=== PATIENT | female | born 1950 | race Caucasian/White ===

== ENCOUNTER 2018-03-30 06:33 | Inpatient (IN) | payer OTHER ==
[~2018-03-30] VITALS: Ht 162.6 cm; Wt 77.1 kg
[2018-03-30] VITALS (8 sets, daily range): BP systolic 134–155; BP diastolic 48–76
[2018-03-30] MEDS ORDERED: ONDANSETRON PF 4 MG/2 ML VIAL. IV ONE (07:15)
[2018-03-30] MEDS ORDERED: IV NORMAL SALINE 1000ML BAG 1,000 ML IV ONE (07:15)
[2018-03-30] MEDS ORDERED: FAMOTIDINE 20 MG/2 ML VIAL IVP ONE (07:15)
[2018-03-30] MEDS ORDERED: MORPHINE SULFATE 4 MG/ML VIAL. IV ONE (07:15)
--- NOTE | 2018-03-30 07:17 | PHYS DOC ---
Adult General Chief Complaint Chief Complaint: NAUSEA/VOMITING/DIARRHA HPI HPI Patient is a 67 year old female who presents with epigastric pain and nausea. Patient had onset of symptoms around 9 PM last night. She had upper abdominal and epigastric pain along with nausea and vomiting. She endorses 6 episodes of emesis overnight described to be nonbloody. Most recent episode was just prior to arrival. No chest pain. No shortness of breath. No fever or chills. She last ate food at 5 PM yesterday when she had brisk and potatoes. No other ill family members. Her past surgical history is only positive for 2. Review of Systems Review of Systems Constitutional: Denies fever or chills Eyes: Denies change in visual acuity HENT: Denies nasal congestion Respiratory: Denies cough Cardiovascular: No additional information not addressed in HPI GI: as documented above : Denies dysuria Musculoskeletal: Denies back pain Integument: Denies rash or skin lesions Neurologic: Denies headache All other systems were reviewed and found to be within normal limits, except as documented in this note. Current Medications Current Medications Current Medications Medications (Trade) Dose Ordered Sig/Faisal Start Time Stop Time Status Last Admin Dose Admin Famotidine (Pepcid Vial) 20 mg 1X ONCE 03/30/18 07:15 03/30/18 07:27 DC 03/30/18 07:31 20 MG Morphine Sulfate (Morphine Sulfate) 4 mg 1X ONCE 03/30/18 07:15 03/30/18 07:27 DC 03/30/18 07:32 4 MG Ondansetron HCl (Zofran) 4 mg 1X ONCE 03/30/18 07:15 03/30/18 07:27 DC 03/30/18 07:31 4 MG Sodium Chloride 1,000 ml @ 1,000 mls/hr 1X ONCE 03/30/18 07:15 03/30/18 08:14 DC 03/30/18 07:32 1,000 MLS/HR Allergies Allergies Allergies Coded Allergies Type Severity Reaction Last Updated Verified No Known Drug Allergies 03/30/18 No Physical Exam Physical Exam Constitutional: Well developed, well nourished, no acute distress, non-toxic appearance HENT: Normocephalic, atraumatic, bilateral external ears normal, oropharynx moist Eyes: PERRLA, EOMI, conjunctiva normal Neck: Normal range of motion Cardiovascular:Heart rate regular, no murmur Lungs & Thorax: Bilateral breath sounds clear to auscultation Abdomen: Bowel sounds normal, soft, subjective TTP over epigastrium but no guarding or significant pain, otherwise normal exam of abdomen Skin: Warm, dry, no erythema, no rash Extremities: No edema Neurologic: Alert and oriented X 3 Psychologic: Affect normal Current Patient Data Vital Signs Vital Signs Date Time Temp Pulse Resp B/P (MAP) Pulse Ox O2 Delivery O2 Flow Rate FiO2 03/30/18 08:30 66 140/66 (90) 98 03/30/18 07:32 16 03/30/18 07:00 97.6 Room Air 97.6 Lab Values Laboratory Tests Test 03/30/18 07:20 03/30/18 08:15 White Blood Count 10.2 x10^3/uL (4.0-11.0) Red Blood Count 5.57 x10^6/uL (3.50-5.40) H Hemoglobin 16.4 g/dL (12.0-15.5) H Hematocrit 47.9 % (36.0-47.0) H Mean Corpuscular Volume 86 fL (79-100) Mean Corpuscular Hemoglobin 29 pg (25-35) Mean Corpuscular Hemoglobin Concent 34 g/dL (31-37) Red Cell Distribution Width 13.5 % (11.5-14.5) Platelet Count 255 x10^3/uL (140-400) Neutrophils (%) (Auto) 75 % (31-73) H Lymphocytes (%) (Auto) 18 % (24-48) L Monocytes (%) (Auto) 6 % (0-9) Eosinophils (%) (Auto) 0 % (0-3) Basophils (%) (Auto) 1 % (0-3) Neutrophils # (Auto) 7.6 x10^3uL (1.8-7.7) Lymphocytes # (Auto) 1.9 x10^3/uL (1.0-4.8) Monocytes # (Auto) 0.6 x10^3/uL (0.0-1.1) Eosinophils # (Auto) 0.0 x10^3/uL (0.0-0.7) Basophils # (Auto) 0.0 x10^3/uL (0.0-0.2) Sodium Level 142 mmol/L (136-145) Potassium Level 4.5 mmol/L (3.5-5.1) Chloride Level 103 mmol/L (98-107) Carbon Dioxide Level 29 mmol/L (21-32) Anion Gap 10 (6-14) Blood Urea Nitrogen 10 mg/dL (7-20) Creatinine 0.8 mg/dL (0.6-1.0) Estimated GFR (Cockcroft-Gault) 71.5 Glucose Level 187 mg/dL (70-99) H Calcium Level 9.3 mg/dL (8.5-10.1) Total Bilirubin 1.3 mg/dL (0.2-1.0) H Direct Bilirubin 0.9 mg/dL (0.0-0.2) H Aspartate Amino Transferase (AST) 545 U/L (15-37) H Alanine Aminotransferase (ALT) 411 U/L (14-59) H Alkaline Phosphatase 124 U/L (46-116) H Troponin I Quantitative < 0.017 ng/mL (0.000-0.055) Total Protein 7.2 g/dL (6.4-8.2) Albumin 3.6 g/dL (3.4-5.0) Lipase 109 U/L (73-393) Laboratory Tests 03/30/18 07:20 Laboratory Tests 03/30/18 08:15 EKG EKG No STEMI Interpretation Time: 07:25 Radiology/Procedures Radiology/Procedures RUQ US: FINDINGS: The pancreas is homogeneous without focal enlargement. There is diffuse attenuation of sound throughout the liver which limits sonographic evaluation of the liver for focal hepatic lesions. This may be seen with fatty infiltration of the liver. The liver measures 17.7 cm in length. The extra hepatic bile duct measures 7 mm in caliber which is at the upper limits of normal. The gallbladder is filled with gallstones. The gallbladder wall measures 4.8 mm in thickness which is abnormal. The length of the right kidney is 10.8 cm. No hydronephrosis or renal mass or perinephric fluid collection is seen on this side. IMPRESSION: Cholelithiasis. Gallbladder wall thickening which may be seen with cholecystitis. The extra hepatic bile duct measures 7 mm in caliber which is at the upper limits of normal. Significant fatty infiltration of the liver. Course & Med Decision Making Course & Med Decision Making Pertinent Labs and Imaging studies reviewed. (See chart for details) 07:10: Patient is seen and examined. Upper abd pain associated with some n/v after eating brisket last night. Will check abd pain labs and troponin, EKG. Exam of abdomen is benign except for mild TTP over epigastrium. Will check US of GB. 08:50: Patient has remained symptom-free since her initial dose of morphine and Zofran. Her abdominal exam remains the same. She does subjectively feel improved. She has no additional nausea. Her pain is improved. Her right upper quadrant ultrasound is revealing for mild thickening of the anterior gallbladder wall but no pericholecystic fluid. Consideration is given for discharge home but the patient's hepatic panel reveals elevation of LFTs. The patient does not say she has had these symptoms more on a chronic basis but that they normally resolve within 2 hours. The episode last night lasted all night which is what prompted her ER visit. No fever. No white count. Plan will be to admit the patient and request GI and surgery consultation. Patient is agreeable to this time. Dragon Disclaimer Dragon Disclaimer This electronic medical record was generated, in whole or in part, using a voice recognition dictation system. Departure Departure Referrals: KOLBY LENNON APRN (PCP) TARA MARTIN DO Mar 30, 2018 07:17
[2018-03-30 07:31] LABS: BASO % 1 % (0-3); EOS % 0 % (0-3); HEMATOCRIT 47.9 % (36.0-47.0); HEMOGLOBIN 16.4 g/dL (12.0-15.5); LYMPH # 1.9 x10^3/uL (1.0-4.8); LYMPH % 18 % (24-48); MEAN CORPUSCULAR HEMOGLOBIN 29 pg (25-35); MEAN CORPUSCULAR HGB CONC 34 g/dL (31-37); MEAN CORPUSCULAR VOLUME 86 fL (79-100); MONO # 0.6 x10^3/uL (0.0-1.1); MONO % 6 % (0-9); NEUT # 7.6 x10^3uL (1.8-7.7); NEUT % 75 % (31-73); PLATELET COUNT 255 x10^3/uL (140-400); RED BLOOD COUNT 5.57 x10^6/uL (3.50-5.40); RED CELL DISTRIBUTION WIDTH 13.5 % (11.5-14.5); WHITE BLOOD COUNT 10.2 x10^3/uL (4.0-11.0)
--- NOTE | 2018-03-30 07:43 | EKG ---
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
--- NOTE | 2018-03-30 08:25 | RAD ---
Limited abdomen ultrasound study of the right upper quadrant Clinical indications: Nausea and vomiting and epigastric pain. FINDINGS: The pancreas is homogeneous without focal enlargement. There is diffuse attenuation of sound throughout the liver which limits sonographic evaluation of the liver for focal hepatic lesions. This may be seen with fatty infiltration of the liver. The liver measures 17.7 cm in length. The extra hepatic bile duct measures 7 mm in caliber which is at the upper limits of normal. The gallbladder is filled with gallstones. The gallbladder wall measures 4.8 mm in thickness which is abnormal. The length of the right kidney is 10.8 cm. No hydronephrosis or renal mass or perinephric fluid collection is seen on this side. IMPRESSION: Cholelithiasis. Gallbladder wall thickening which may be seen with cholecystitis. The extra hepatic bile duct measures 7 mm in caliber which is at the upper limits of normal. Significant fatty infiltration of the liver. Electronically signed by: Erasto Murillo MD (03/30/2018 8:22 AM) [id number]
[2018-03-30 08:32] LABS: CALCIUM 9.3 mg/dL (8.5-10.1); CREATININE 0.8 mg/dL (0.6-1.0); GFR 71.5; POTASSIUM 4.5 mmol/L (3.5-5.1)
[2018-03-30 09:24] LABS: ALBUMIN 3.6 g/dL (3.4-5.0); DIRECT BILIRUBIN 0.9 mg/dL (0.0-0.2); TOTAL BILIRUBIN 1.3 mg/dL (0.2-1.0); TOTAL PROTEIN 7.2 g/dL (6.4-8.2)
[2018-03-30] MEDS ORDERED: MORPHINE SULFATE 4 MG/ML VIAL. IV PRN (09:45)
[2018-03-30] MEDS ORDERED: ONDANSETRON PF 4 MG/2 ML VIAL. IV PRN ×2 (09:45→11:30)
[2018-03-30 10:43] LABS: BILIRUBIN,URINE SMALL (NEG); CLARITY,URINE CLEAR; COLOR,URINE AMBER; NITRITE,URINE NEGATIVE (NEG); PH,URINE 7.5; PROTEIN,URINE 100 mg/dL (NEG-TRACE)
[2018-03-30 10:55] LABS: BACTERIA,URINE MODERATE /HPF (0-FEW); RBC,URINE 0 /HPF (0-2); SQUAMOUS EPITHELIAL CELL,UR MOD /LPF
[2018-03-30] MEDS ORDERED: IV RINGERS,LACTATED 1000ML 1,000 ML IV SCH (11:22)
[2018-03-30] MEDS ORDERED: fentaNYL PF VIAL 100 MCG/2 ML VIAL IV PRN ×2 (11:30)
[2018-03-30] MEDS ORDERED: MORPHINE SULFATE 2 MG/ML VIAL. IV PRN (11:30)
[2018-03-30] MEDS ORDERED: PROCHLORPERAZINE 10 MG/2 ML VIAL. IV PRN (11:30)
[2018-03-30] MEDS ORDERED: HYDROmorphone 2 MG/ML VIAL IV PRN (11:30)
[2018-03-30] MEDS ORDERED: LIDOCAINE 1% PF 2 ML VIAL. ID PRN (11:30)
--- NOTE | 2018-03-30 11:36 | PDOC2 ---
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 Associated nausea and emesis. Intermittent symptoms over the years, however usually only last a few hours. This was the worst episode. Was told in past had gallstones Past Medical History Cardiovascular: HTN, Hyperlipidemia Past Surgical History Past Surgical History: Family History Family History: Other (noncontributory to current illness ) Social History No ALCOHOL: rare Drugs: None Lives: with Family Current Medications Current Medications Current Medications Sodium Chloride 1,000 ml @ 1,000 mls/hr 1X ONCE IV Last administered on at 07:32; Start 03/30/18 at 07:15; Stop 03/30/18 at 08:14; Status DC Famotidine (Pepcid Vial) 20 mg 1X ONCE IVP Last administered on 03/30/18at 07: 31; Start 03/30/18 at 07:15; Stop 03/30/18 at 07:27; Status DC Morphine Sulfate (Morphine Sulfate) 4 mg 1X ONCE IV Last administered on at 07:32; Start 03/30/18 at 07:15; Stop 03/30/18 at 07:27; Status DC Ondansetron HCl (Zofran) 4 mg 1X ONCE IV Last administered on 03/30/18at 07:31 ; Start 03/30/18 at 07:15; Stop 03/30/18 at 07:27; Status DC Ondansetron HCl (Zofran) 4 mg PRN Q8HRS PRN IV NAUSEA/VOMITING; Start 03/30/18 at 09:45; Stop 03/31/18 at 09:44 Morphine Sulfate (Morphine Sulfate) 4 mg PRN Q2HR PRN IV PAIN; Start 03/30/18 at 09:45; Stop 03/31/18 at 09:44 Ondansetron HCl (Zofran) 4 mg PRN Q6HRS PRN IV NAUSEA/VOMITING; Start 03/30/18 at 11:30; Stop 03/30/18 at 19:00 Fentanyl Citrate (Fentanyl 2ml Vial) 25 mcg PRN Q5MIN PRN IV MILD PAIN; Start 03/30/18 at 11:30; Stop 03/31/18 at 11:29 Fentanyl Citrate (Fentanyl 2ml Vial) 50 mcg PRN Q5MIN PRN IV MODERATE TO SEVERE PAIN; Start 03/30/18 at 11:30; Stop 03/31/18 at 11:29 Morphine Sulfate (Morphine Sulfate) 1 mg PRN Q10MIN PRN IV SEVERE PAIN; Start 03/30/18 at 11:30; Stop 03/31/18 at 11:29 Ringer's Solution 1,000 ml @ 30 mls/hr Q24H IV ; Start 03/30/18 at 11:22; Stop 03/30/18 at 23:21 Lidocaine HCl (Xylocaine-Mpf 1% 2ml Vial) 2 ml 1X PRN PRN ID IV START; Start 03/30/18 at 11:30; Stop 03/31/18 at 11:29 Hydromorphone HCl (Dilaudid) 0.5 mg PRN Q10MIN PRN IV SEV PAIN, Second choice; Start 03/30/18 at 11:30; Stop 03/31/18 at 11:29 Prochlorperazine Edisylate (Compazine) 5 mg PACU PRN PRN IV NAUSEA, MRX1; Start 03/30/18 at 11:30; Stop 03/31/18 at 11:29 Allergies Allergies: Coded Allergies: No Known Drug Allergies (Unverified , 03/30/18) ROS General: No: Chills, Other (fevers) PSYCHOLOGICAL ROS: No: Anxiety, Depression Eyes: No Blurry vision, No Double vision HEENT: No: Heacaches, Sore Throat Hematological and Lymphatic: No: Bleeding Problems, Blood Clots Respiratory: No: Cough, Shortness of breath Cardiovascular: No Chest Pain, No Palpitations Gastrointestinal: Yes Other (seehpi) Genitourinary: No Dysuria, No Retention Musculoskeletal: No Joint Pain, No Muscle Pain Neurological: No Confusion, No Impaired Coord/balance Skin: No Pruritus, No Rash Physical Exam General: Alert, Oriented X3, Cooperative, No acute distress HEENT: PERRLA, Mucous membr. moist/pink Lungs: Clear to auscultation, Normal air movement Heart: Regular rate, Normal S1, Normal S2, No murmurs Abdomen: Soft, Other (ND, currently NTTP) Extremities: No clubbing, No cyanosis Skin: No rashes, No breakdown Neuro: Normal gait, Normal speech Psych/Mental Status: Mental status NL, Mood NL MUSCULOSKELETAL: No deformity, No swelling Vitals VITALS Vital Signs Date Time Temp Pulse Resp B/P (MAP) Pulse Ox O2 Delivery O2 Flow Rate FiO2 03/30/18 10:00 66 16 141/67 (91) 97 Room Air 03/30/18 07:00 97.6 97.6 Labs Labs Laboratory Tests Test 03/30/18 07:00 03/30/18 07:20 03/30/18 08:15 Urine Collection Type Unknown Urine Color Jessica Urine Clarity Clear Urine pH 7.5 Urine Specific Levasy 1.025 Urine Protein 100 mg/dL (NEG-TRACE) Urine Glucose (UA) Negative mg/dL (NEG) Urine Ketones (Stick) Negative mg/dL (NEG) Urine Blood Negative (NEG) Urine Nitrite Negative (NEG) Urine Bilirubin Small (NEG) Urine Urobilinogen Dipstick 4.0 mg/dL (0.2 mg/dL) Urine Leukocyte Esterase Trace (NEG) Urine RBC 0 /HPF (0-2) Urine WBC 1-4 /HPF (0-4) Urine Squamous Epithelial Cells Mod /LPF Urine Bacteria Moderate /HPF (0-FEW) Urine Mucus Mod /LPF White Blood Count 10.2 x10^3/uL (4.0-11.0) Red Blood Count 5.57 x10^6/uL (3.50-5.40) Hemoglobin 16.4 g/dL (12.0-15.5) Hematocrit 47.9 % (36.0-47.0) Mean Corpuscular Volume 86 fL (79-100) Mean Corpuscular Hemoglobin 29 pg (25-35) Mean Corpuscular Hemoglobin Concent 34 g/dL (31-37) Red Cell Distribution Width 13.5 % (11.5-14.5) Platelet Count 255 x10^3/uL (140-400) Neutrophils (%) (Auto) 75 % (31-73) Lymphocytes (%) (Auto) 18 % (24-48) Monocytes (%) (Auto) 6 % (0-9) Eosinophils (%) (Auto) 0 % (0-3) Basophils (%) (Auto) 1 % (0-3) Neutrophils # (Auto) 7.6 x10^3uL (1.8-7.7) Lymphocytes # (Auto) 1.9 x10^3/uL (1.0-4.8) Monocytes # (Auto) 0.6 x10^3/uL (0.0-1.1) Eosinophils # (Auto) 0.0 x10^3/uL (0.0-0.7) Basophils # (Auto) 0.0 x10^3/uL (0.0-0.2) Sodium Level 142 mmol/L (136-145) Potassium Level 4.5 mmol/L (3.5-5.1) Chloride Level 103 mmol/L (98-107) Carbon Dioxide Level 29 mmol/L (21-32) Anion Gap 10 (6-14) Blood Urea Nitrogen 10 mg/dL (7-20) Creatinine 0.8 mg/dL (0.6-1.0) Estimated GFR (Cockcroft-Gault) 71.5 Glucose Level 187 mg/dL (70-99) Calcium Level 9.3 mg/dL (8.5-10.1) Total Bilirubin 1.3 mg/dL (0.2-1.0) Direct Bilirubin 0.9 mg/dL (0.0-0.2) Aspartate Amino Transf (AST/SGOT) 545 U/L (15-37) Alanine Aminotransferase (ALT/SGPT) 411 U/L (14-59) Alkaline Phosphatase 124 U/L (46-116) Troponin I Quantitative < 0.017 ng/mL (0.000-0.055) Total Protein 7.2 g/dL (6.4-8.2) Albumin 3.6 g/dL (3.4-5.0) Lipase 109 U/L (73-393) Laboratory Tests Test 03/30/18 07:00 03/30/18 07:20 03/30/18 08:15 Urine Collection Type Unknown Urine Color Jessica Urine Clarity Clear Urine pH 7.5 Urine Specific Lev[place] 1.025 Urine Protein 100 mg/dL (NEG-TRACE) Urine Glucose (UA) Negative mg/dL (NEG) Urine Ketones (Stick) Negative mg/dL (NEG) Urine Blood Negative (NEG) Urine Nitrite Negative (NEG) Urine Bilirubin Small (NEG) Urine Urobilinogen Dipstick 4.0 mg/dL (0.2 mg/dL) Urine Leukocyte Esterase Trace (NEG) Urine RBC 0 /HPF (0-2) Urine WBC 1-4 /HPF (0-4) Urine Squamous Epithelial Cells Mod /LPF Urine Bacteria Moderate /HPF (0-FEW) Urine Mucus Mod /LPF White Blood Count 10.2 x10^3/uL (4.0-11.0) Red Blood Count 5.57 x10^6/uL (3.50-5.40) Hemoglobin 16.4 g/dL (12.0-15.5) Hematocrit 47.9 % (36.0-47.0) Mean Corpuscular Volume 86 fL (79-100) Mean Corpuscular Hemoglobin 29 pg (25-35) Mean Corpuscular Hemoglobin Concent 34 g/dL (31-37) Red Cell Distribution Width 13.5 % (11.5-14.5) Platelet Count 255 x10^3/uL (140-400) Neutrophils (%) (Auto) 75 % (31-73) Lymphocytes (%) (Auto) 18 % (24-48) Monocytes (%) (Auto) 6 % (0-9) Eosinophils (%) (Auto) 0 % (0-3) Basophils (%) (Auto) 1 % (0-3) Neutrophils # (Auto) 7.6 x10^3uL (1.8-7.7) Lymphocytes # (Auto) 1.9 x10^3/uL (1.0-4.8) Monocytes # (Auto) 0.6 x10^3/uL (0.0-1.1) Eosinophils # (Auto) 0.0 x10^3/uL (0.0-0.7) Basophils # (Auto) 0.0 x10^3/uL (0.0-0.2) Sodium Level 142 mmol/L (136-145) Potassium Level 4.5 mmol/L (3.5-5.1) Chloride Level 103 mmol/L (98-107) Carbon Dioxide Level 29 mmol/L (21-32) Anion Gap 10 (6-14) Blood Urea Nitrogen 10 mg/dL (7-20) Creatinine 0.8 mg/dL (0.6-1.0) Estimated GFR (Cockcroft-Gault) 71.5 Glucose Level 187 mg/dL (70-99) Calcium Level 9.3 mg/dL (8.5-10.1) Total Bilirubin 1.3 mg/dL (0.2-1.0) Direct Bilirubin 0.9 mg/dL (0.0-0.2) Aspartate Amino Transf (AST/SGOT) 545 U/L (15-37) Alanine Aminotransferase (ALT/SGPT) 411 U/L (14-59) Alkaline Phosphatase 124 U/L (46-116) Troponin I Quantitative < 0.017 ng/mL (0.000-0.055) Total Protein 7.2 g/dL (6.4-8.2) Albumin 3.6 g/dL (3.4-5.0) Lipase 109 U/L (73-393) Assessment/Plan Assessment/Plan cholecystitis plan for lap steven today RU DIAZ MD 03/30/18 1322: CONSULT Assessment/Plan Assessment/Plan Agree with above; pt seen and examined by myself; 67 year old female with abdominal pain starting last night, pain located in upper mid abdomen, nonradiating. She reports associated nausea and vomiting. She has had prior similar episodes, but never as severe or persistent. PMH/PSH/ROS/SH as above; exam: alert, oriented, no distress, no neck masses, no icterus, lungs clear, heart RR and R abdomen soft, currently nontender, no masses, ext neg for edema. Labs and sonogram reviewed; A/P) Abdominal pain, suspect calculous cholecystitis, plan for lap steven; the details and risks of surgery were discussed with the patient. She understands and would like to proceed. JUAN DANIEL MCKAY APRN Mar 30, 2018 11:36 RU DIAZ MD Mar 30, 2018 13:22
[2018-03-30] MEDS ORDERED: ceFAZolin 2GM PREMIX 2 GM/50 ML BAG IV ONE (12:00)
--- NOTE | 2018-03-30 12:15 | PDOC2 ---
GI CONSULT Reason For Consult: N/v, cholelithiasis, transaminitis HPI: HPI: 67 y/o female evaluated in ER for epigastric pain and vomiting. Apparently similar symptoms over the years and known gallstones. Denies chronic GI issues. No previous EGD or colonoscopy, though scheduled to have colonoscopy this week at . Labs: WBC 16.4, bili 1.3, AST 545, ALT 411, Alk Phos 124. US: cholelithiasis, GB wall thickening, extra hepatic duct 7mm, fatty liver. IOC: no free flow of contrast material into the duodenum consistent with a distal common bile duct obstruction, note slight meniscus of the distal common bile duct. PMH: PMH: HTN, HLD, Social History: Smoke: No ALCOHOL: rare Drugs: None ROS: GEN: Denies fevers, chills, sweats HEENT: Denies blurred vision, sore throat CV: Denies chest pain RESP: Denies shortness of air, cough GI: Per HPI : Denies hematuria, dysuria ENDO: Denies weight changes NEURO: Denies confusion, dizziness MSK: Denies weakness, joint pain/swelling SKIN: Denies jaundice, pruritus Vitals: Vitals: Vital Signs Date Time Temp Pulse Resp B/P (MAP) Pulse Ox O2 Delivery O2 Flow Rate FiO2 03/30/18 12:01 97.4 66 15 156/77 95 Room Air 97.4 Labs: Labs: Laboratory Tests Test 03/30/18 07:00 03/30/18 07:20 03/30/18 08:15 Urine Collection Type Unknown Urine Color Jessica Urine Clarity Clear Urine pH 7.5 Urine Specific [facility] 1.025 Urine Protein 100 mg/dL (NEG-TRACE) Urine Glucose (UA) Negative mg/dL (NEG) Urine Ketones (Stick) Negative mg/dL (NEG) Urine Blood Negative (NEG) Urine Nitrite Negative (NEG) Urine Bilirubin Small (NEG) Urine Urobilinogen Dipstick 4.0 mg/dL (0.2 mg/dL) Urine Leukocyte Esterase Trace (NEG) Urine RBC 0 /HPF (0-2) Urine WBC 1-4 /HPF (0-4) Urine Squamous Epithelial Cells Mod /LPF Urine Bacteria Moderate /HPF (0-FEW) Urine Mucus Mod /LPF White Blood Count 10.2 x10^3/uL (4.0-11.0) Red Blood Count 5.57 x10^6/uL (3.50-5.40) Hemoglobin 16.4 g/dL (12.0-15.5) Hematocrit 47.9 % (36.0-47.0) Mean Corpuscular Volume 86 fL (79-100) Mean Corpuscular Hemoglobin 29 pg (25-35) Mean Corpuscular Hemoglobin Concent 34 g/dL (31-37) Red Cell Distribution Width 13.5 % (11.5-14.5) Platelet Count 255 x10^3/uL (140-400) Neutrophils (%) (Auto) 75 % (31-73) Lymphocytes (%) (Auto) 18 % (24-48) Monocytes (%) (Auto) 6 % (0-9) Eosinophils (%) (Auto) 0 % (0-3) Basophils (%) (Auto) 1 % (0-3) Neutrophils # (Auto) 7.6 x10^3uL (1.8-7.7) Lymphocytes # (Auto) 1.9 x10^3/uL (1.0-4.8) Monocytes # (Auto) 0.6 x10^3/uL (0.0-1.1) Eosinophils # (Auto) 0.0 x10^3/uL (0.0-0.7) Basophils # (Auto) 0.0 x10^3/uL (0.0-0.2) Sodium Level 142 mmol/L (136-145) Potassium Level 4.5 mmol/L (3.5-5.1) Chloride Level 103 mmol/L (98-107) Carbon Dioxide Level 29 mmol/L (21-32) Anion Gap 10 (6-14) Blood Urea Nitrogen 10 mg/dL (7-20) Creatinine 0.8 mg/dL (0.6-1.0) Estimated GFR (Cockcroft-Gault) 71.5 Glucose Level 187 mg/dL (70-99) Calcium Level 9.3 mg/dL (8.5-10.1) Total Bilirubin 1.3 mg/dL (0.2-1.0) Direct Bilirubin 0.9 mg/dL (0.0-0.2) Aspartate Amino Transf (AST/SGOT) 545 U/L (15-37) Alanine Aminotransferase (ALT/SGPT) 411 U/L (14-59) Alkaline Phosphatase 124 U/L (46-116) Troponin I Quantitative < 0.017 ng/mL (0.000-0.055) Total Protein 7.2 g/dL (6.4-8.2) Albumin 3.6 g/dL (3.4-5.0) Lipase 109 U/L (73-393) Allergies: Coded Allergies: No Known Drug Allergies (Unverified , 03/30/18) Medications: Current Medications Medications (Trade) Dose Ordered Sig/Faisal Route PRN Reason Start Time Stop Time Status Last Admin Dose Admin Sodium Chloride 1,000 ml @ 1,000 mls/hr 1X ONCE IV 03/30/18 07:15 03/30/18 08:14 DC 03/30/18 07:32 Famotidine (Pepcid Vial) 20 mg 1X ONCE IVP 03/30/18 07:15 03/30/18 07:27 DC 03/30/18 07:31 Morphine Sulfate (Morphine Sulfate) 4 mg 1X ONCE IV 03/30/18 07:15 03/30/18 07:27 DC 03/30/18 07:32 Ondansetron HCl (Zofran) 4 mg 1X ONCE IV 03/30/18 07:15 03/30/18 07:27 DC 03/30/18 07:31 Imaging: Imaging: Abd US FINDINGS: The pancreas is homogeneous without focal enlargement. There is diffuse attenuation of sound throughout the liver which limits sonographic evaluation of the liver for focal hepatic lesions. This may be seen with fatty infiltration of the liver. The liver measures 17.7 cm in length. The extra hepatic bile duct measures 7 mm in caliber which is at the upper limits of normal. The gallbladder is filled with gallstones. The gallbladder wall measures 4.8 mm in thickness which is abnormal. The length of the right kidney is 10.8 cm. No hydronephrosis or renal mass or perinephric fluid collection is seen on this side. IMPRESSION: Cholelithiasis. Gallbladder wall thickening which may be seen with cholecystitis. The extra hepatic bile duct measures 7 mm in caliber which is at the upper limits of normal. Significant fatty infiltration of the liver. IOC IMPRESSION: Fluoroscopic spot images demonstrate opacification of dilated extra hepatic biliary tree with no free flow of contrast material into the duodenum consistent with a distal common bile duct obstruction. There is a slight meniscus of the distal common bile duct and therefore this may be secondary to a distal common bile duct stone. PE: GEN: NAD HEENT: Atraumatic, PERRLA LUNGS: CTAB HEART: RRR ABD: NABS, S/ND/NT EXTREMITY: No edema SKIN: No rashes, no jaundice NEURO/PSYCH: A & O 3 A/P: A/P: Abd pain, vomiting Cholelithiasis, GB wall thickening Abnormal IOC - possible choledocholithiasis Elevated LFTs Fatty liver -- Reviewed w/ Dr. Mary - plan for ERCP tomorrow afternoon. GIA GANN Mar 30, 2018 12:15
[2018-03-30] MEDS ORDERED: PROPOFOL 20 ML IV ONE (12:50)
[2018-03-30] MEDS ORDERED: DEXAMETHASONE SOD PHOS 20 MG/5 ML VIAL. ONE (12:50)
[2018-03-30] MEDS ORDERED: ONDANSETRON PF 4 MG/2 ML VIAL. ONE (12:50)
[2018-03-30] MEDS ORDERED: FAMOTIDINE 20 MG/2 ML VIAL ONE (12:50)
[2018-03-30] MEDS ORDERED: LIDOCAINE 2% PF Vial for OR 5 ML VIAL. ONE (12:50)
[2018-03-30] MEDS ORDERED: ROCURONIUM 50 MG/5 ML VIAL. ONE (13:07)
[2018-03-30] MEDS ORDERED: MIDAZOLAM HCL/PF 2 MG/2 ML VIAL. ONE (13:07)
[2018-03-30] MEDS ORDERED: fentaNYL PF VIAL 100 MCG/2 ML VIAL ONE ×2 (13:07→15:17)
[2018-03-30] MEDS ORDERED: BUPIVACAINE-EPI 0.5%-1:200000 50 ML VIAL. ONE (13:09)
[2018-03-30] MEDS ORDERED: IOHEXOL 300 MG/ML 100ML VIAL. ONE (13:09)
[2018-03-30] MEDS ORDERED: BUPIVAC MPF-EPI 0.5%-1:200000 30 ML VIAL. INJ ONE (14:02)
[2018-03-30] MEDS ORDERED: IOHEXOL 300 MG/ML 50 ML VIAL. INT CAT ONE (14:02)
[2018-03-30] MEDS ORDERED: ePHEDrine PF IN SALINE 50 MG/5 ML DISP.SYRIN IV ONE (14:11)
[2018-03-30] MEDS ORDERED: GLUCAGON,HUMAN RECOMBINANT 1 MG/ML VIAL. ONE (14:31)
[2018-03-30] MEDS ORDERED: GLUCAGON,HUMAN RECOMBINANT 1 MG/ML VIAL. IV ONE (14:35)
[2018-03-30] MEDS ORDERED: NEOSTIGMINE METHYLSULFATE 5 MG/5 ML SYRINGE. ONE (14:51)
[2018-03-30] MEDS ORDERED: GLYCOPYRROLATE 1 MG/5 ML VIAL. ONE (14:51)
[2018-03-30] MEDS ORDERED: DESFLURANE 61 TO 120 MINUTES IH ONE (14:58)
--- NOTE | 2018-03-30 15:06 | PDOC4 ---
Operative Note Operative Note Operative Note: Preoperative Diagnosis: Calculus cholecystitis Postoperative Diagnosis: Same, choledocholithiasis Procedure: Laparoscopic cholecystectomy with intraoperative cholangiogram Surgeons: Jeremiah Anesthesia: Gen. Estimated Blood Loss: 25 mL Specimen: Gallbladder to pathology Drains: 19 Faroese ALEENA drain Findings: Obstruction of distal common duct, likely stone Complications: None Indications: The patient is a 67-year-old female who reported to the emergency department with abdominal pain. Her evaluation showed gallstones and some abnormal liver testing. Surgical treatment was offered by means of a laparoscopic cholecystectomy with plans for cholangiogram. The risks of surgery were discussed which include bleeding, infection, bile duct injury, bile leak, pain, the potential for additional surgeries or procedures. The patient understands and would like to proceed. Description: The patient was taken to the operating room and laid supine on the operating table. General anesthesia was performed. The abdomen was prepped with ChloraPrep and draped in a standard surgical fashion. A small infraumbilical incision was made with a scalpel. The Veress needle was then inserted and a pneumoperitoneum was then created. A 5 mm trocar was then inserted and the laparoscope was introduced. In the upper midabdomen an 11 mm trocar was inserted and in the right upper quadrant two 2.3 mm mini lap graspers were inserted. The gallbladder was retracted cephalad. The cystic duct was dissected free from surrounding tissues. One clip was placed on the duct near the gallbladder junction. An opening was made in the duct and a cholangiocatheter placed within and secured with a clip. Using contrast dye and fluoroscopy an intraoperative cholangiogram was performed that suggested obstruction of the distal common duct most likely from a stone. One milligram of glucagon was administered and allowed to circulate. Revisualization of the bile duct showed continued obstruction and contrast never passed into the duodenum. The clip and catheter were then withdrawn. Three clips were placed on the cystic duct and it was divided. The cystic artery was then identified, dissected free, doubly clipped and divided as well. The gallbladder was then mobilized away from the liver with cautery. A 19 Faroese round Donald drain was left in the gallbladder fossa with an exit site in the right lateral incision. This was secured to the skin with 2-0 silk. The gallbladder was then placed in an endoscopic bag and extracted at the superior trocar site. The fascia there was closed with an 0 Vicryl suture. All blood and irrigation fluid was suctioned and hemostasis was good. The remaining ports were removed and the pneumoperitoneum was relieved. The skin incisions were injected with half percent Marcaine with epinephrine, and all were closed using 4-0 Monocryl suture. Steri-Strips and dressings were then applied. The patient tolerated the procedure well and was sent to the recovery room in stable condition. At the end of the case all counts were correct. RU DIAZ MD Mar 30, 2018 15:06
[2018-03-30] MEDS ORDERED: PROCHLORPERAZINE 10 MG/2 ML VIAL. ONE (15:17)
--- NOTE | 2018-03-30 15:22 | RAD ---
C-arm fluoroscopy with fluoroscopic spot views INDICATIONS: Cholecystectomy. Intraoperative angiogram. Total fluoroscopic time: 35 seconds. Total fluoroscopic spot images: 3. IMPRESSION: Fluoroscopic spot images demonstrate opacification of dilated extra hepatic biliary tree with no free flow of contrast material into the duodenum consistent with a distal common bile duct obstruction. There is a slight meniscus of the distal common bile duct and therefore this may be secondary to a distal common bile duct stone. Note-this report was relayed to the x-ray tech at 3:18 PM on March 30, 2018. She will convey this message to the operating room. Electronically signed by: Erasto Murillo MD (03/30/2018 3:19 PM) [id number]
--- NOTE | 2018-03-30 16:24 | PDOC1 ---
History and Physical Date of Admission Date of Admission 03/30/18 Identification/Chief Complaint Chief Complaint abd pain Source Source: Chart review, Patient History of Present Illness History of Present Illness Patient is a 67 year old female who presents with epigastric pain and nausea since last night. pt said she started to have abd pain since last night, epigastric pain, dull, severe, 8/10, with non bloody non bibilous vomiting 6 times. no fever, chills, chest pain, sob. CT showed cholelithiasis with possible cholecystitis. Her past surgical history is only positive for 2 Past Medical History Cardiovascular: HTN, Hyperlipidemia Past Surgical History Past Surgical History: Family History Family History: Other (noncontributory to current illness ) Social History Smoke: No ALCOHOL: rare Drugs: None Current Medications Current Medications Current Medications Medications (Trade) Dose Ordered Sig/Faisal Start Time Stop Time Status Last Admin Dose Admin Bupivacaine HCl/ Epinephrine Bitart (Sensorcain-Mpf Epi 0.5%-1:[id number]) 30 ml STK-MED ONCE 03/30/18 14:02 03/30/18 14:17 DC 03/30/18 14:02 6 ML Cefazolin Sodium/ Dextrose 50 ml @ 100 mls/hr 1X PREOP PRN 03/30/18 11:45 03/30/18 18:00 Desflurane (Suprane) 60 ml STK-MED ONCE 03/30/18 14:58 03/30/18 14:59 DC Dexamethasone Sodium Phosphate (Decadron) 20 mg STK-MED ONCE 03/30/18 12:50 03/30/18 12:51 DC Ephedrine Sulfate (ePHEDrine PF IN SALINE SYRINGE) 50 mg STK-MED ONCE 03/30/18 14:11 03/30/18 14:12 DC Famotidine (Pepcid Vial) 20 mg STK-MED ONCE 03/30/18 12:50 03/30/18 12:51 DC Fentanyl Citrate (Fentanyl 2ml Vial) 100 mcg STK-MED ONCE 03/30/18 15:17 03/30/18 15:18 DC Glucagon (Glucagen) 1 mg STK-MED ONCE 03/30/18 14:35 03/30/18 14:42 DC 03/30/18 14:35 1 MG Glycopyrrolate (Robinul) 1 mg STK-MED ONCE 03/30/18 14:51 03/30/18 14:52 DC Hydromorphone HCl (Dilaudid) 0.5 mg PRN Q10MIN PRN 03/30/18 11:30 03/31/18 11:29 Iohexol (Omnipaque 300 Mg/ml) 50 ml STK-MED ONCE 03/30/18 14:02 03/30/18 14:17 DC 03/30/18 14:02 5 ML Lidocaine HCl (Lidocaine Pf 2% Vial) 5 ml STK-MED ONCE 03/30/18 12:50 03/30/18 12:51 DC Lidocaine HCl (Xylocaine-Mpf 1% 2ml Vial) 2 ml 1X PRN PRN 03/30/18 11:30 03/31/18 11:29 Midazolam HCl (Versed) 2 mg STK-MED ONCE 03/30/18 13:07 03/30/18 13:08 DC Morphine Sulfate (Morphine Sulfate) 1 mg PRN Q10MIN PRN 03/30/18 11:30 03/31/18 11:29 Neostigmine Methylsulfate (Neostigmine Methylsulfate) 5 mg STK-MED ONCE 03/30/18 14:51 03/30/18 14:52 DC Ondansetron HCl (Zofran) 4 mg STK-MED ONCE 03/30/18 12:50 03/30/18 12:51 DC Prochlorperazine Edisylate (Compazine) 10 mg STK-MED ONCE 03/30/18 15:17 03/30/18 15:18 DC Propofol 20 ml @ As Directed STK-MED ONCE 03/30/18 12:50 03/30/18 12:51 DC Ringer's Solution 1,000 ml @ 30 mls/hr Q24H 03/30/18 11:22 03/30/18 23:21 Rocuronium [place] (Zemuron) 50 mg STK-MED ONCE 03/30/18 13:07 03/30/18 13:08 DC Sodium Chloride 1,000 ml @ 1,000 mls/hr 1X ONCE 03/30/18 07:15 03/30/18 08:14 DC 03/30/18 07:32 1,000 MLS/HR Allergies Allergies Allergies Coded Allergies Type Severity Reaction Last Updated Verified No Known Drug Allergies 03/30/18 No ROS Review of System CONSTITUTIONAL: No fever or chills EYES: No recent changes SKIN: No rash or itching CARDIOVASCULAR: No chest pain, syncope, palpitations, or edema RESPIRATORY: No SOB or cough GASTROINTESTINAL: No nausea, vomiting or abdominal pain NEUROLOGICAL: No headaches or weakness ENDOCRINE: No cold or heat intolerance GENITOURINARY: No urgency or frequency of urination MUSCULOSKELETAL: No back pain or joint pain LYMPHATICS: No enlarged lymph nodes PSYCHIATRIC: No anxiety or depression Physical Exam Physical Exam GEN.: No apparent distress. Alert and oriented. HEENT: Head is normocephalic, atraumatic NECK: Supple. LUNGS: Clear to auscultation. HEART: RRR, S1, S2 present. Peripheral pulses intact ABDOMEN: Soft, Positive bowel sounds. + tender. EXTREMITIES: Without any cyanosis. NEUROLOGIC: Normal speech, normal tone PSYCHIATRIC: Normal affect, normal mood. SKIN: No ulcerations Vitals Vitals Vital Signs Date Time Temp Pulse Resp B/P (MAP) Pulse Ox O2 Delivery O2 Flow Rate FiO2 03/30/18 16:10 Nasal Cannula 4 03/30/18 16:00 97.4 72 18 162/69 94 97.4 Labs Labs Laboratory Tests Test 03/30/18 07:00 03/30/18 07:20 03/30/18 08:15 03/30/18 15:37 Urine Collection Type Unknown Urine Color Jessica Urine Clarity Clear Urine pH 7.5 Urine Specific Ages [place] 1.025 Urine Protein 100 mg/dL (NEG-TRACE) Urine Glucose (UA) Negative mg/dL (NEG) Urine Ketones (Stick) Negative mg/dL (NEG) Urine Blood Negative (NEG) Urine Nitrite Negative (NEG) Urine Bilirubin Small (NEG) Urine Urobilinogen Dipstick 4.0 mg/dL (0.2 mg/dL) Urine Leukocyte Esterase Trace (NEG) Urine RBC 0 /HPF (0-2) Urine WBC 1-4 /HPF (0-4) Urine Squamous Epithelial Cells Mod /LPF Urine Bacteria Moderate /HPF (0-FEW) Urine Mucus Mod /LPF White Blood Count 10.2 x10^3/uL (4.0-11.0) Red Blood Count 5.57 x10^6/uL (3.50-5.40) Hemoglobin 16.4 g/dL (12.0-15.5) Hematocrit 47.9 % (36.0-47.0) Mean Corpuscular Volume 86 fL (79-100) Mean Corpuscular Hemoglobin 29 pg (25-35) Mean Corpuscular Hemoglobin Concent 34 g/dL (31-37) Red Cell Distribution Width 13.5 % (11.5-14.5) Platelet Count 255 x10^3/uL (140-400) Neutrophils (%) (Auto) 75 % (31-73) Lymphocytes (%) (Auto) 18 % (24-48) Monocytes (%) (Auto) 6 % (0-9) Eosinophils (%) (Auto) 0 % (0-3) Basophils (%) (Auto) 1 % (0-3) Neutrophils # (Auto) 7.6 x10^3uL (1.8-7.7) Lymphocytes # (Auto) 1.9 x10^3/uL (1.0-4.8) Monocytes # (Auto) 0.6 x10^3/uL (0.0-1.1) Eosinophils # (Auto) 0.0 x10^3/uL (0.0-0.7) Basophils # (Auto) 0.0 x10^3/uL (0.0-0.2) Sodium Level 142 mmol/L (136-145) Potassium Level 4.5 mmol/L (3.5-5.1) Chloride Level 103 mmol/L (98-107) Carbon Dioxide Level 29 mmol/L (21-32) Anion Gap 10 (6-14) Blood Urea Nitrogen 10 mg/dL (7-20) Creatinine 0.8 mg/dL (0.6-1.0) Estimated GFR (Cockcroft-Gault) 71.5 Glucose Level 187 mg/dL (70-99) Calcium Level 9.3 mg/dL (8.5-10.1) Total Bilirubin 1.3 mg/dL (0.2-1.0) Direct Bilirubin 0.9 mg/dL (0.0-0.2) Aspartate Amino Transf (AST/SGOT) 545 U/L (15-37) Alanine Aminotransferase (ALT/SGPT) 411 U/L (14-59) Alkaline Phosphatase 124 U/L (46-116) Troponin I Quantitative < 0.017 ng/mL (0.000-0.055) Total Protein 7.2 g/dL (6.4-8.2) Albumin 3.6 g/dL (3.4-5.0) Lipase 109 U/L (73-393) Glucose (Fingerstick) 170 mg/dL (70-99) Laboratory Tests Test 03/30/18 07:00 03/30/18 07:20 03/30/18 08:15 03/30/18 15:37 Urine Collection Type Unknown Urine Color Jessica Urine Clarity Clear Urine pH 7.5 Urine Specific Ages [place] 1.025 Urine Protein 100 mg/dL (NEG-TRACE) Urine Glucose (UA) Negative mg/dL (NEG) Urine Ketones (Stick) Negative mg/dL (NEG) Urine Blood Negative (NEG) Urine Nitrite Negative (NEG) Urine Bilirubin Small (NEG) Urine Urobilinogen Dipstick 4.0 mg/dL (0.2 mg/dL) Urine Leukocyte Esterase Trace (NEG) Urine RBC 0 /HPF (0-2) Urine WBC 1-4 /HPF (0-4) Urine Squamous Epithelial Cells Mod /LPF Urine Bacteria Moderate /HPF (0-FEW) Urine Mucus Mod /LPF White Blood Count 10.2 x10^3/uL (4.0-11.0) Red Blood Count 5.57 x10^6/uL (3.50-5.40) Hemoglobin 16.4 g/dL (12.0-15.5) Hematocrit 47.9 % (36.0-47.0) Mean Corpuscular Volume 86 fL (79-100) Mean Corpuscular Hemoglobin 29 pg (25-35) Mean Corpuscular Hemoglobin Concent 34 g/dL (31-37) Red Cell Distribution Width 13.5 % (11.5-14.5) Platelet Count 255 x10^3/uL (140-400) Neutrophils (%) (Auto) 75 % (31-73) Lymphocytes (%) (Auto) 18 % (24-48) Monocytes (%) (Auto) 6 % (0-9) Eosinophils (%) (Auto) 0 % (0-3) Basophils (%) (Auto) 1 % (0-3) Neutrophils # (Auto) 7.6 x10^3uL (1.8-7.7) Lymphocytes # (Auto) 1.9 x10^3/uL (1.0-4.8) Monocytes # (Auto) 0.6 x10^3/uL (0.0-1.1) Eosinophils # (Auto) 0.0 x10^3/uL (0.0-0.7) Basophils # (Auto) 0.0 x10^3/uL (0.0-0.2) Sodium Level 142 mmol/L (136-145) Potassium Level 4.5 mmol/L (3.5-5.1) Chloride Level 103 mmol/L (98-107) Carbon Dioxide Level 29 mmol/L (21-32) Anion Gap 10 (6-14) Blood Urea Nitrogen 10 mg/dL (7-20) Creatinine 0.8 mg/dL (0.6-1.0) Estimated GFR (Cockcroft-Gault) 71.5 Glucose Level 187 mg/dL (70-99) Calcium Level 9.3 mg/dL (8.5-10.1) Total Bilirubin 1.3 mg/dL (0.2-1.0) Direct Bilirubin 0.9 mg/dL (0.0-0.2) Aspartate Amino Transf (AST/SGOT) 545 U/L (15-37) Alanine Aminotransferase (ALT/SGPT) 411 U/L (14-59) Alkaline Phosphatase 124 U/L (46-116) Troponin I Quantitative < 0.017 ng/mL (0.000-0.055) Total Protein 7.2 g/dL (6.4-8.2) Albumin 3.6 g/dL (3.4-5.0) Lipase 109 U/L (73-393) Glucose (Fingerstick) 170 mg/dL (70-99) VTE Prophylaxis Ordered VTE Prophylaxis Devices: Yes VTE Pharmacological Prophylaxi: No Assessment/Plan Assessment/Plan abd pain with acute calculus cholecystitis s/p lap cholecystectomy 03/30 elevated LFT with CBD obstruction possibly HTN plan; fu with sx. sx done today fu with GI, may need ERCP? NPO AFTER MN INcase procedure ivf pain control clear liquid diet as per sx post sx LFT tmr need verify home meds MINDI BREWSTER MD Mar 30, 2018 16:24
[2018-03-30] MEDS ORDERED: LABETALOL 20 MG/4 ML DISP.SYRIN. IVP PRN (16:30)
[2018-03-31] VITALS (11 sets, daily range): BP systolic 91–187; BP diastolic 47–88
[2018-03-31 03:47] LABS: BASO % 0 % (0-3); EOS % 0 % (0-3); HEMATOCRIT 44.1 % (36.0-47.0); HEMOGLOBIN 14.5 g/dL (12.0-15.5); LYMPH # 1.2 x10^3/uL (1.0-4.8); LYMPH % 9 % (24-48); MEAN CORPUSCULAR HEMOGLOBIN 29 pg (25-35); MEAN CORPUSCULAR HGB CONC 33 g/dL (31-37); MEAN CORPUSCULAR VOLUME 87 fL (79-100); MONO # 0.7 x10^3/uL (0.0-1.1); MONO % 5 % (0-9); NEUT # 11.8 x10^3uL (1.8-7.7); NEUT % 86 % (31-73); PLATELET COUNT 240 x10^3/uL (140-400); RED BLOOD COUNT 5.08 x10^6/uL (3.50-5.40); RED CELL DISTRIBUTION WIDTH 13.9 % (11.5-14.5); WHITE BLOOD COUNT 13.6 x10^3/uL (4.0-11.0)
[2018-03-31 04:04] LABS: ALBUMIN 3.2 g/dL (3.4-5.0); ALBUMIN/GLOBULIN RATIO 0.8 (1.0-1.7); CALCIUM 9.3 mg/dL (8.5-10.1); CREATININE 0.7 mg/dL (0.6-1.0); GFR 83.5; POTASSIUM 4.5 mmol/L (3.5-5.1); TOTAL BILIRUBIN 2.9 mg/dL (0.2-1.0); TOTAL PROTEIN 7.3 g/dL (6.4-8.2)
[2018-03-31 04:41] LABS: % BANDS 2 % (0-9); % LYMPHS 11 % (24-48); % MONOS 5 % (0-10); % SEGS 82 % (35-66); PLT ESTIMATE ADEQUATE (ADEQUATE)
--- NOTE | 2018-03-31 07:58 | PDOC ---
JUAN DANIEL MCKAY REHABILITATION THERAPIST 03/31/18 0758: SURGICAL PROGRESS NOTE Subjective resting pain managed no n/v Vital Signs Vital Signs Date Time Temp Pulse Resp B/P (MAP) Pulse Ox O2 Delivery O2 Flow Rate FiO2 03/31/18 03:00 97.9 95 16 91/47 (62) 96 Nasal Cannula 2.0 97.9 I&O Intake and Output 03/31/18 07:00 Intake Total 1200 ml Output Total 190 ml Balance 1010 ml Intake Oral 50 ml IV Total 1150 ml Output Urine Total 125 ml Drainage Total 40 ml Estimated Blood Loss 25 ml # Voids 1 General: Alert, Oriented X3, Cooperative, No acute distress Abdomen: Soft, Other (ND, ALEENA serosang, lap dressings dry) Labs Laboratory Tests Test 03/30/18 07:00 03/30/18 07:20 03/30/18 08:15 03/30/18 15:37 Urine Collection Type Unknown Urine Color Jessica Urine Clarity Clear Urine pH 7.5 Urine Specific [place] 1.025 Urine Protein 100 mg/dL (NEG-TRACE) Urine Glucose (UA) Negative mg/dL (NEG) Urine Ketones (Stick) Negative mg/dL (NEG) Urine Blood Negative (NEG) Urine Nitrite Negative (NEG) Urine Bilirubin Small (NEG) Urine Urobilinogen Dipstick 4.0 mg/dL (0.2 mg/dL) Urine Leukocyte Esterase Trace (NEG) Urine RBC 0 /HPF (0-2) Urine WBC 1-4 /HPF (0-4) Urine Squamous Epithelial Cells Mod /LPF Urine Bacteria Moderate /HPF (0-FEW) Urine Mucus Mod /LPF White Blood Count 10.2 x10^3/uL (4.0-11.0) Red Blood Count 5.57 x10^6/uL (3.50-5.40) Hemoglobin 16.4 g/dL (12.0-15.5) Hematocrit 47.9 % (36.0-47.0) Mean Corpuscular Volume 86 fL (79-100) Mean Corpuscular Hemoglobin 29 pg (25-35) Mean Corpuscular Hemoglobin Concent 34 g/dL (31-37) Red Cell Distribution Width 13.5 % (11.5-14.5) Platelet Count 255 x10^3/uL (140-400) Neutrophils (%) (Auto) 75 % (31-73) Lymphocytes (%) (Auto) 18 % (24-48) Monocytes (%) (Auto) 6 % (0-9) Eosinophils (%) (Auto) 0 % (0-3) Basophils (%) (Auto) 1 % (0-3) Neutrophils # (Auto) 7.6 x10^3uL (1.8-7.7) Lymphocytes # (Auto) 1.9 x10^3/uL (1.0-4.8) Monocytes # (Auto) 0.6 x10^3/uL (0.0-1.1) Eosinophils # (Auto) 0.0 x10^3/uL (0.0-0.7) Basophils # (Auto) 0.0 x10^3/uL (0.0-0.2) Sodium Level 142 mmol/L (136-145) Potassium Level 4.5 mmol/L (3.5-5.1) Chloride Level 103 mmol/L (98-107) Carbon Dioxide Level 29 mmol/L (21-32) Anion Gap 10 (6-14) Blood Urea Nitrogen 10 mg/dL (7-20) Creatinine 0.8 mg/dL (0.6-1.0) Estimated GFR (Cockcroft-Gault) 71.5 Glucose Level 187 mg/dL (70-99) Calcium Level 9.3 mg/dL (8.5-10.1) Total Bilirubin 1.3 mg/dL (0.2-1.0) Direct Bilirubin 0.9 mg/dL (0.0-0.2) Aspartate Amino Transf (AST/SGOT) 545 U/L (15-37) Alanine Aminotransferase (ALT/SGPT) 411 U/L (14-59) Alkaline Phosphatase 124 U/L (46-116) Troponin I Quantitative < 0.017 ng/mL (0.000-0.055) Total Protein 7.2 g/dL (6.4-8.2) Albumin 3.6 g/dL (3.4-5.0) Lipase 109 U/L (73-393) Glucose (Fingerstick) 170 mg/dL (70-99) Test 03/31/18 02:55 White Blood Count 13.6 x10^3/uL (4.0-11.0) Red Blood Count 5.08 x10^6/uL (3.50-5.40) Hemoglobin 14.5 g/dL (12.0-15.5) Hematocrit 44.1 % (36.0-47.0) Mean Corpuscular Volume 87 fL (79-100) Mean Corpuscular Hemoglobin 29 pg (25-35) Mean Corpuscular Hemoglobin Concent 33 g/dL (31-37) Red Cell Distribution Width 13.9 % (11.5-14.5) Platelet Count 240 x10^3/uL (140-400) Neutrophils (%) (Auto) 86 % (31-73) Lymphocytes (%) (Auto) 9 % (24-48) Monocytes (%) (Auto) 5 % (0-9) Eosinophils (%) (Auto) 0 % (0-3) Basophils (%) (Auto) 0 % (0-3) Neutrophils # (Auto) 11.8 x10^3uL (1.8-7.7) Lymphocytes # (Auto) 1.2 x10^3/uL (1.0-4.8) Monocytes # (Auto) 0.7 x10^3/uL (0.0-1.1) Eosinophils # (Auto) 0.0 x10^3/uL (0.0-0.7) Basophils # (Auto) 0.0 x10^3/uL (0.0-0.2) Segmented Neutrophils % 82 % (35-66) Band Neutrophils % 2 % (0-9) Lymphocytes % 11 % (24-48) Monocytes % 5 % (0-10) Platelet Estimate Adequate (ADEQUATE) Sodium Level 142 mmol/L (136-145) Potassium Level 4.5 mmol/L (3.5-5.1) Chloride Level 104 mmol/L (98-107) Carbon Dioxide Level 29 mmol/L (21-32) Anion Gap 9 (6-14) Blood Urea Nitrogen 6 mg/dL (7-20) Creatinine 0.7 mg/dL (0.6-1.0) Estimated GFR (Cockcroft-Gault) 83.5 BUN/Creatinine Ratio 9 (6-20) Glucose Level 160 mg/dL (70-99) Calcium Level 9.3 mg/dL (8.5-10.1) Total Bilirubin 2.9 mg/dL (0.2-1.0) Direct Bilirubin 2.0 mg/dL (0.0-0.2) Aspartate Amino Transf (AST/SGOT) 463 U/L (15-37) Alanine Aminotransferase (ALT/SGPT) 537 U/L (14-59) Alkaline Phosphatase 156 U/L (46-116) Total Protein 7.3 g/dL (6.4-8.2) Albumin 3.2 g/dL (3.4-5.0) Albumin/Globulin Ratio 0.8 (1.0-1.7) Laboratory Tests Test 03/30/18 08:15 03/30/18 15:37 03/31/18 02:55 Sodium Level 142 mmol/L (136-145) 142 mmol/L (136-145) Potassium Level 4.5 mmol/L (3.5-5.1) 4.5 mmol/L (3.5-5.1) Chloride Level 103 mmol/L (98-107) 104 mmol/L (98-107) Carbon Dioxide Level 29 mmol/L (21-32) 29 mmol/L (21-32) Anion Gap 10 (6-14) 9 (6-14) Blood Urea Nitrogen 10 mg/dL (7-20) 6 mg/dL (7-20) Creatinine 0.8 mg/dL (0.6-1.0) 0.7 mg/dL (0.6-1.0) Estimated GFR (Cockcroft-Gault) 71.5 83.5 Glucose Level 187 mg/dL (70-99) 160 mg/dL (70-99) Calcium Level 9.3 mg/dL (8.5-10.1) 9.3 mg/dL (8.5-10.1) Total Bilirubin 1.3 mg/dL (0.2-1.0) 2.9 mg/dL (0.2-1.0) Direct Bilirubin 0.9 mg/dL (0.0-0.2) 2.0 mg/dL (0.0-0.2) Aspartate Amino Transf (AST/SGOT) 545 U/L (15-37) 463 U/L (15-37) Alanine Aminotransferase (ALT/SGPT) 411 U/L (14-59) 537 U/L (14-59) Alkaline Phosphatase 124 U/L (46-116) 156 U/L (46-116) Troponin I Quantitative < 0.017 ng/mL (0.000-0.055) Total Protein 7.2 g/dL (6.4-8.2) 7.3 g/dL (6.4-8.2) Albumin 3.6 g/dL (3.4-5.0) 3.2 g/dL (3.4-5.0) Lipase 109 U/L (73-393) Glucose (Fingerstick) 170 mg/dL (70-99) White Blood Count 13.6 x10^3/uL (4.0-11.0) Red Blood Count 5.08 x10^6/uL (3.50-5.40) Hemoglobin 14.5 g/dL (12.0-15.5) Hematocrit 44.1 % (36.0-47.0) Mean Corpuscular Volume 87 fL (79-100) Mean Corpuscular Hemoglobin 29 pg (25-35) Mean Corpuscular Hemoglobin Concent 33 g/dL (31-37) Red Cell Distribution Width 13.9 % (11.5-14.5) Platelet Count 240 x10^3/uL (140-400) Neutrophils (%) (Auto) 86 % (31-73) Lymphocytes (%) (Auto) 9 % (24-48) Monocytes (%) (Auto) 5 % (0-9) Eosinophils (%) (Auto) 0 % (0-3) Basophils (%) (Auto) 0 % (0-3) Neutrophils # (Auto) 11.8 x10^3uL (1.8-7.7) Lymphocytes # (Auto) 1.2 x10^3/uL (1.0-4.8) Monocytes # (Auto) 0.7 x10^3/uL (0.0-1.1) Eosinophils # (Auto) 0.0 x10^3/uL (0.0-0.7) Basophils # (Auto) 0.0 x10^3/uL (0.0-0.2) Segmented Neutrophils % 82 % (35-66) Band Neutrophils % 2 % (0-9) Lymphocytes % 11 % (24-48) Monocytes % 5 % (0-10) Platelet Estimate Adequate (ADEQUATE) BUN/Creatinine Ratio 9 (6-20) Albumin/Globulin Ratio 0.8 (1.0-1.7) Problem List s/p steven ERCP today RU DIAZ MD 03/31/18 0940: SURGICAL PROGRESS NOTE Assessment/Plan Agree with above JUAN DANIEL MCKAY APRN Mar 31, 2018 07:58 RU DIAZ MD Mar 31, 2018 09:40
[2018-03-31 08:50] LABS: PROTHROMBIN TIME PATIENT 12.8 SEC (11.7-14.0)
[2018-03-31] MEDS ORDERED: PROPOFOL 10 MG/ML (20ML) VIAL. IV ONE (14:00)
[2018-03-31] MEDS ORDERED: SUCCINYLCHOLINE 200 MG/10 ML VIAL. ONE (14:00)
--- NOTE | 2018-03-31 14:05 | PDOC ---
PROGRESS NOTES Chief Complaint Chief Complaint abd pain with acute calculus cholecystitis s/p lap cholecystectomy 03/30 elevated LFT with CBD obstruction possibly HTN plan; fu with sx. sx done today fu with GI, ERCP today ivf pain control LFT tmr need verify home meds dvt ppx tmr ua, ucx. repeat since pt has dysuria post op History of Present Illness History of Present Illness ROS: no fever, chills,sob or chest pain bl upper abd pain, mild post op bili higher toDAY , STILL HIGH lft c/o mild dysuria post op no flatus or BM post op 03/30 Vitals Vitals Vital Signs Date Time Temp Pulse Resp B/P (MAP) Pulse Ox O2 Delivery O2 Flow Rate FiO2 03/31/18 11:00 97.9 80 16 132/62 (85) 96 Room Air 97.9 03/31/18 03:00 2.0 Physical Exam General: Alert, Oriented X3, Cooperative, No acute distress Heart: Regular rate, Normal S1, Normal S2, No murmurs Lungs: Clear Abdomen: Soft, Other (ND, ALEENA serosang, lap dressings dry. no BS.) Extremities: No clubbing, No cyanosis Skin: No rashes, No breakdown Labs LABS Laboratory Tests Test 03/30/18 15:37 03/31/18 02:55 03/31/18 08:30 Glucose (Fingerstick) 170 mg/dL (70-99) White Blood Count 13.6 x10^3/uL (4.0-11.0) Red Blood Count 5.08 x10^6/uL (3.50-5.40) Hemoglobin 14.5 g/dL (12.0-15.5) Hematocrit 44.1 % (36.0-47.0) Mean Corpuscular Volume 87 fL (79-100) Mean Corpuscular Hemoglobin 29 pg (25-35) Mean Corpuscular Hemoglobin Concent 33 g/dL (31-37) Red Cell Distribution Width 13.9 % (11.5-14.5) Platelet Count 240 x10^3/uL (140-400) Neutrophils (%) (Auto) 86 % (31-73) Lymphocytes (%) (Auto) 9 % (24-48) Monocytes (%) (Auto) 5 % (0-9) Eosinophils (%) (Auto) 0 % (0-3) Basophils (%) (Auto) 0 % (0-3) Neutrophils # (Auto) 11.8 x10^3uL (1.8-7.7) Lymphocytes # (Auto) 1.2 x10^3/uL (1.0-4.8) Monocytes # (Auto) 0.7 x10^3/uL (0.0-1.1) Eosinophils # (Auto) 0.0 x10^3/uL (0.0-0.7) Basophils # (Auto) 0.0 x10^3/uL (0.0-0.2) Segmented Neutrophils % 82 % (35-66) Band Neutrophils % 2 % (0-9) Lymphocytes % 11 % (24-48) Monocytes % 5 % (0-10) Platelet Estimate Adequate (ADEQUATE) Sodium Level 142 mmol/L (136-145) Potassium Level 4.5 mmol/L (3.5-5.1) Chloride Level 104 mmol/L (98-107) Carbon Dioxide Level 29 mmol/L (21-32) Anion Gap 9 (6-14) Blood Urea Nitrogen 6 mg/dL (7-20) Creatinine 0.7 mg/dL (0.6-1.0) Estimated GFR (Cockcroft-Gault) 83.5 BUN/Creatinine Ratio 9 (6-20) Glucose Level 160 mg/dL (70-99) Calcium Level 9.3 mg/dL (8.5-10.1) Total Bilirubin 2.9 mg/dL (0.2-1.0) Direct Bilirubin 2.0 mg/dL (0.0-0.2) Aspartate Amino Transf (AST/SGOT) 463 U/L (15-37) Alanine Aminotransferase (ALT/SGPT) 537 U/L (14-59) Alkaline Phosphatase 156 U/L (46-116) Total Protein 7.3 g/dL (6.4-8.2) Albumin 3.2 g/dL (3.4-5.0) Albumin/Globulin Ratio 0.8 (1.0-1.7) Prothrombin Time 12.8 SEC (11.7-14.0) Prothromb Time International Ratio 1.0 (0.8-1.1) Comment Review of Relevant I have reviewed the following items jaclyn (where applicable) has been applied. Labs Laboratory Tests Test 03/30/18 07:00 03/30/18 07:20 03/30/18 08:15 03/30/18 15:37 Urine Collection Type Unknown Urine Color Jessica Urine Clarity Clear Urine pH 7.5 Urine Specific [place] 1.025 Urine Protein 100 mg/dL (NEG-TRACE) Urine Glucose (UA) Negative mg/dL (NEG) Urine Ketones (Stick) Negative mg/dL (NEG) Urine Blood Negative (NEG) Urine Nitrite Negative (NEG) Urine Bilirubin Small (NEG) Urine Urobilinogen Dipstick 4.0 mg/dL (0.2 mg/dL) Urine Leukocyte Esterase Trace (NEG) Urine RBC 0 /HPF (0-2) Urine WBC 1-4 /HPF (0-4) Urine Squamous Epithelial Cells Mod /LPF Urine Bacteria Moderate /HPF (0-FEW) Urine Mucus Mod /LPF White Blood Count 10.2 x10^3/uL (4.0-11.0) Red Blood Count 5.57 x10^6/uL (3.50-5.40) Hemoglobin 16.4 g/dL (12.0-15.5) Hematocrit 47.9 % (36.0-47.0) Mean Corpuscular Volume 86 fL (79-100) Mean Corpuscular Hemoglobin 29 pg (25-35) Mean Corpuscular Hemoglobin Concent 34 g/dL (31-37) Red Cell Distribution Width 13.5 % (11.5-14.5) Platelet Count 255 x10^3/uL (140-400) Neutrophils (%) (Auto) 75 % (31-73) Lymphocytes (%) (Auto) 18 % (24-48) Monocytes (%) (Auto) 6 % (0-9) Eosinophils (%) (Auto) 0 % (0-3) Basophils (%) (Auto) 1 % (0-3) Neutrophils # (Auto) 7.6 x10^3uL (1.8-7.7) Lymphocytes # (Auto) 1.9 x10^3/uL (1.0-4.8) Monocytes # (Auto) 0.6 x10^3/uL (0.0-1.1) Eosinophils # (Auto) 0.0 x10^3/uL (0.0-0.7) Basophils # (Auto) 0.0 x10^3/uL (0.0-0.2) Sodium Level 142 mmol/L (136-145) Potassium Level 4.5 mmol/L (3.5-5.1) Chloride Level 103 mmol/L (98-107) Carbon Dioxide Level 29 mmol/L (21-32) Anion Gap 10 (6-14) Blood Urea Nitrogen 10 mg/dL (7-20) Creatinine 0.8 mg/dL (0.6-1.0) Estimated GFR (Cockcroft-Gault) 71.5 Glucose Level 187 mg/dL (70-99) Calcium Level 9.3 mg/dL (8.5-10.1) Total Bilirubin 1.3 mg/dL (0.2-1.0) Direct Bilirubin 0.9 mg/dL (0.0-0.2) Aspartate Amino Transf (AST/SGOT) 545 U/L (15-37) Alanine Aminotransferase (ALT/SGPT) 411 U/L (14-59) Alkaline Phosphatase 124 U/L (46-116) Troponin I Quantitative < 0.017 ng/mL (0.000-0.055) Total Protein 7.2 g/dL (6.4-8.2) Albumin 3.6 g/dL (3.4-5.0) Lipase 109 U/L (73-393) Glucose (Fingerstick) 170 mg/dL (70-99) Test 03/31/18 02:55 03/31/18 08:30 White Blood Count 13.6 x10^3/uL (4.0-11.0) Red Blood Count 5.08 x10^6/uL (3.50-5.40) Hemoglobin 14.5 g/dL (12.0-15.5) Hematocrit 44.1 % (36.0-47.0) Mean Corpuscular Volume 87 fL (79-100) Mean Corpuscular Hemoglobin 29 pg (25-35) Mean Corpuscular Hemoglobin Concent 33 g/dL (31-37) Red Cell Distribution Width 13.9 % (11.5-14.5) Platelet Count 240 x10^3/uL (140-400) Neutrophils (%) (Auto) 86 % (31-73) Lymphocytes (%) (Auto) 9 % (24-48) Monocytes (%) (Auto) 5 % (0-9) Eosinophils (%) (Auto) 0 % (0-3) Basophils (%) (Auto) 0 % (0-3) Neutrophils # (Auto) 11.8 x10^3uL (1.8-7.7) Lymphocytes # (Auto) 1.2 x10^3/uL (1.0-4.8) Monocytes # (Auto) 0.7 x10^3/uL (0.0-1.1) Eosinophils # (Auto) 0.0 x10^3/uL (0.0-0.7) Basophils # (Auto) 0.0 x10^3/uL (0.0-0.2) Segmented Neutrophils % 82 % (35-66) Band Neutrophils % 2 % (0-9) Lymphocytes % 11 % (24-48) Monocytes % 5 % (0-10) Platelet Estimate Adequate (ADEQUATE) Sodium Level 142 mmol/L (136-145) Potassium Level 4.5 mmol/L (3.5-5.1) Chloride Level 104 mmol/L (98-107) Carbon Dioxide Level 29 mmol/L (21-32) Anion Gap 9 (6-14) Blood Urea Nitrogen 6 mg/dL (7-20) Creatinine 0.7 mg/dL (0.6-1.0) Estimated GFR (Cockcroft-Gault) 83.5 BUN/Creatinine Ratio 9 (6-20) Glucose Level 160 mg/dL (70-99) Calcium Level 9.3 mg/dL (8.5-10.1) Total Bilirubin 2.9 mg/dL (0.2-1.0) Direct Bilirubin 2.0 mg/dL (0.0-0.2) Aspartate Amino Transf (AST/SGOT) 463 U/L (15-37) Alanine Aminotransferase (ALT/SGPT) 537 U/L (14-59) Alkaline Phosphatase 156 U/L (46-116) Total Protein 7.3 g/dL (6.4-8.2) Albumin 3.2 g/dL (3.4-5.0) Albumin/Globulin Ratio 0.8 (1.0-1.7) Prothrombin Time 12.8 SEC (11.7-14.0) Prothromb Time International Ratio 1.0 (0.8-1.1) Laboratory Tests Test 03/30/18 15:37 03/31/18 02:55 03/31/18 08:30 Glucose (Fingerstick) 170 mg/dL (70-99) White Blood Count 13.6 x10^3/uL (4.0-11.0) Red Blood Count 5.08 x10^6/uL (3.50-5.40) Hemoglobin 14.5 g/dL (12.0-15.5) Hematocrit 44.1 % (36.0-47.0) Mean Corpuscular Volume 87 fL (79-100) Mean Corpuscular Hemoglobin 29 pg (25-35) Mean Corpuscular Hemoglobin Concent 33 g/dL (31-37) Red Cell Distribution Width 13.9 % (11.5-14.5) Platelet Count 240 x10^3/uL (140-400) Neutrophils (%) (Auto) 86 % (31-73) Lymphocytes (%) (Auto) 9 % (24-48) Monocytes (%) (Auto) 5 % (0-9) Eosinophils (%) (Auto) 0 % (0-3) Basophils (%) (Auto) 0 % (0-3) Neutrophils # (Auto) 11.8 x10^3uL (1.8-7.7) Lymphocytes # (Auto) 1.2 x10^3/uL (1.0-4.8) Monocytes # (Auto) 0.7 x10^3/uL (0.0-1.1) Eosinophils # (Auto) 0.0 x10^3/uL (0.0-0.7) Basophils # (Auto) 0.0 x10^3/uL (0.0-0.2) Segmented Neutrophils % 82 % (35-66) Band Neutrophils % 2 % (0-9) Lymphocytes % 11 % (24-48) Monocytes % 5 % (0-10) Platelet Estimate Adequate (ADEQUATE) Sodium Level 142 mmol/L (136-145) Potassium Level 4.5 mmol/L (3.5-5.1) Chloride Level 104 mmol/L (98-107) Carbon Dioxide Level 29 mmol/L (21-32) Anion Gap 9 (6-14) Blood Urea Nitrogen 6 mg/dL (7-20) Creatinine 0.7 mg/dL (0.6-1.0) Estimated GFR (Cockcroft-Gault) 83.5 BUN/Creatinine Ratio 9 (6-20) Glucose Level 160 mg/dL (70-99) Calcium Level 9.3 mg/dL (8.5-10.1) Total Bilirubin 2.9 mg/dL (0.2-1.0) Direct Bilirubin 2.0 mg/dL (0.0-0.2) Aspartate Amino Transf (AST/SGOT) 463 U/L (15-37) Alanine Aminotransferase (ALT/SGPT) 537 U/L (14-59) Alkaline Phosphatase 156 U/L (46-116) Total Protein 7.3 g/dL (6.4-8.2) Albumin 3.2 g/dL (3.4-5.0) Albumin/Globulin Ratio 0.8 (1.0-1.7) Prothrombin Time 12.8 SEC (11.7-14.0) Prothromb Time International Ratio 1.0 (0.8-1.1) Medications Current Medications Sodium Chloride 1,000 ml @ 1,000 mls/hr 1X ONCE IV Last administered on at 07:32; Start 03/30/18 at 07:15; Stop 03/30/18 at 08:14; Status DC Famotidine (Pepcid Vial) 20 mg 1X ONCE IVP Last administered on 03/30/18at 07: 31; Start 03/30/18 at 07:15; Stop 03/30/18 at 07:27; Status DC Morphine Sulfate (Morphine Sulfate) 4 mg 1X ONCE IV Last administered on at 07:32; Start 03/30/18 at 07:15; Stop 03/30/18 at 07:27; Status DC Ondansetron HCl (Zofran) 4 mg 1X ONCE IV Last administered on 03/30/18at 07:31 ; Start 03/30/18 at 07:15; Stop 03/30/18 at 07:27; Status DC Ondansetron HCl (Zofran) 4 mg PRN Q8HRS PRN IV NAUSEA/VOMITING; Start 03/30/18 at 09:45; Stop 03/31/18 at 09:44; Status DC Morphine Sulfate (Morphine Sulfate) 4 mg PRN Q2HR PRN IV PAIN; Start 03/30/18 at 09:45; Stop 03/31/18 at 09:44; Status DC Ondansetron HCl (Zofran) 4 mg PRN Q6HRS PRN IV NAUSEA/VOMITING; Start 03/30/18 at 11:30; Stop 03/30/18 at 19:00; Status DC Fentanyl Citrate (Fentanyl 2ml Vial) 25 mcg PRN Q5MIN PRN IV MILD PAIN; Start 03/30/18 at 11:30; Stop 03/31/18 at 11:29; Status DC Fentanyl Citrate (Fentanyl 2ml Vial) 50 mcg PRN Q5MIN PRN IV MODERATE TO SEVERE PAIN Last administered on 03/30/18at 15:38; Start 03/30/18 at 11:30; Stop 03/31/18 at 11:29; Status DC Morphine Sulfate (Morphine Sulfate) 1 mg PRN Q10MIN PRN IV SEVERE PAIN; Start 03/30/18 at 11:30; Stop 03/31/18 at 11:29; Status DC Ringer's Solution 1,000 ml @ 30 mls/hr Q24H IV ; Start 03/30/18 at 11:22; Stop 03/30/18 at 23:21; Status DC Lidocaine HCl (Xylocaine-Mpf 1% 2ml Vial) 2 ml 1X PRN PRN ID IV START; Start 03/30/18 at 11:30; Stop 03/31/18 at 11:29; Status DC Hydromorphone HCl (Dilaudid) 0.5 mg PRN Q10MIN PRN IV SEV PAIN, Second choice; Start 03/30/18 at 11:30; Stop 03/31/18 at 11:29; Status DC Prochlorperazine Edisylate (Compazine) 5 mg PACU PRN PRN IV NAUSEA, MRX1 Last administered on 03/30/18at 15:29; Start 03/30/18 at 11:30; Stop 03/31/18 at 11:29 ; Status DC Cefazolin Sodium/ Dextrose 50 ml @ 100 mls/hr 1X PREOP PRN IV 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 to or; Start 03/30/18 at 11:45; Stop 03/30/18 at 18:00; Status DC Propofol 20 ml @ As Directed STK-MED ONCE IV ; Start 03/30/18 at 12:50; Stop at 12:51; Status DC Famotidine (Pepcid Vial) 20 mg STK-MED ONCE .ROUTE ; Start 03/30/18 at 12:50; Stop 03/30/18 at 12:51; Status DC Dexamethasone Sodium Phosphate (Decadron) 20 mg STK-MED ONCE .ROUTE ; Start 03/30/18 at 12:50; Stop 03/30/18 at 12:51; Status DC Lidocaine HCl (Lidocaine Pf 2% Vial) 5 ml STK-MED ONCE .ROUTE ; Start 03/30/18 at 12:50; Stop 03/30/18 at 12:51; Status DC Ondansetron HCl (Zofran) 4 mg STK-MED ONCE .ROUTE ; Start 03/30/18 at 12:50; Stop 03/30/18 at 12:51; Status DC Midazolam HCl (Versed) 2 mg STK-MED ONCE .ROUTE ; Start 03/30/18 at 13:07; Stop 03/30/18 at 13:08; Status DC Fentanyl Citrate (Fentanyl 2ml Vial) 100 mcg STK-MED ONCE .ROUTE ; Start at 13:07; Stop 03/30/18 at 13:08; Status DC Rocuronium Thompson (Zemuron) 50 mg STK-MED ONCE .ROUTE ; Start 03/30/18 at 13:07 ; Stop 03/30/18 at 13:08; Status DC Iohexol (Omnipaque 300 Mg/ml) 100 ml STK-MED ONCE .ROUTE ; Start 03/30/18 at 13: 09; Stop 03/30/18 at 13:10; Status DC Bupivacaine HCl/ Epinephrine Bitart (Sensorcain-Mpf Epi 0.5%-[id number]) 30 ml STK -MED ONCE INJ Last administered on 03/30/18at 14:02; Start 03/30/18 at 14:02; Stop 03/30/18 at 14:17; Status DC Iohexol (Omnipaque 300 Mg/ml) 50 ml STK-MED ONCE INT CAT Last administered on 03/30/18at 14:02; Start 03/30/18 at 14:02; Stop 03/30/18 at 14:17; Status DC Ephedrine Sulfate (ePHEDrine PF IN SALINE SYRINGE) 50 mg STK-MED ONCE IV ; Start 03/30/18 at 14:11; Stop 03/30/18 at 14:12; Status DC Glucagon (Glucagen) 1 mg STK-MED ONCE .ROUTE ; Start 03/30/18 at 14:31; Stop at 14:32; Status DC Glucagon (Glucagen) 1 mg STK-MED ONCE IV Last administered on 03/30/18at 14:35; Start 03/30/18 at 14:35; Stop 03/30/18 at 14:42; Status DC Glycopyrrolate (Robinul) 1 mg STK-MED ONCE .ROUTE ; Start 03/30/18 at 14:51; Stop 03/30/18 at 14:52; Status DC Neostigmine Methylsulfate (Neostigmine Methylsulfate) 5 mg STK-MED ONCE .ROUTE ; Start 03/30/18 at 14:51; Stop 03/30/18 at 14:52; Status DC Desflurane (Suprane) 60 ml STK-MED ONCE IH ; Start 03/30/18 at 14:58; Stop 03/30 at 14:59; Status DC Fentanyl Citrate (Fentanyl 2ml Vial) 100 mcg STK-MED ONCE .ROUTE ; Start at 15:17; Stop 03/30/18 at 15:18; Status DC Prochlorperazine Edisylate (Compazine) 10 mg STK-MED ONCE .ROUTE ; Start at 15:17; Stop 03/30/18 at 15:18; Status DC Labetalol HCl (Normodyne Iv Push) 20 mg PRN Q2HR PRN IVP HYPERTENSION, SEE COMMENTS; Start 03/30/18 at 16:30 Cefazolin Sodium/ Dextrose (Ancef 2gm Premix) 2 gm STK-MED ONCE IV ; Start 03/30 at 12:00; Stop 03/31/18 at 08:51; Status DC Vitals/I & O Vital Sign - Last 24 Hours 03/30/18 03/30/18 03/30/18 03/30/18 15:15 15:15 15:30 15:38 Temp 97.7 97.7 Pulse 72 94 Resp 22 18 16 B/P (MAP) 197/82 170/ Pulse Ox 100 97 93 O2 Delivery Simple Mask Mask Simple Mask Nasal Cannula O2 Flow Rate 10 10 10 4.0 03/30/18 03/30/18 03/30/18 03/30/18 15:45 16:00 16:10 16:22 Temp 97.4 97.4 Pulse 76 72 Resp 20 18 B/P (MAP) 154/63 162/69 Pulse Ox 97 94 94 O2 Delivery Nasal Cannula Nasal Cannula Nasal Cannula Nasal Cannula O2 Flow Rate 4 4 4 4.0 03/30/18 03/30/18 03/30/18 03/30/18 16:35 16:50 17:05 17:20 Pulse 67 80 105 75 B/P (MAP) 155/72 (99) 134/48 (76) 155/72 (99) 145/76 (99) Pulse Ox 95 98 99 98 03/30/18 03/30/18 03/30/18 03/30/18 17:50 19:00 20:00 23:00 Temp 97.9 98.1 97.9 98.1 Pulse 77 98 115 Resp 16 16 B/P (MAP) 147/71 (96) 138/71 (93) 148/63 (91) Pulse Ox 100 92 98 O2 Delivery Nasal Cannula Room Air Nasal Cannula Nasal Cannula O2 Flow Rate 2.0 2.0 2.0 03/31/18 03/31/18 03/31/18 03:00 07:00 11:00 Temp 97.9 97.9 97.9 97.9 97.9 97.9 Pulse 95 82 80 Resp 16 16 16 B/P (MAP) 91/47 (62) 127/67 (87) 132/62 (85) Pulse Ox 96 92 96 O2 Delivery Nasal Cannula Room Air Room Air O2 Flow Rate 2.0 Intake and Output 03/30/18 03/30/18 03/31/18 15:00 23:00 07:00 Intake Total 0 ml 1150 ml 50 ml Output Total 150 ml 40 ml Balance 0 ml 1000 ml 10 ml MINDI BREWSTER MD Mar 31, 2018 14:05
[2018-03-31] MEDS ORDERED: traMADol 50 MG TABLET PO PRN (14:15)
[2018-03-31] MEDS ORDERED: MORPHINE SULFATE 2 MG/ML VIAL. IV PRN (14:15)
[2018-03-31] MEDS ORDERED: ACETAMINOPHEN 325 MG TABLET. PO PRN (14:15)
[2018-03-31] MEDS ORDERED: DOCUSATE SODIUM 100 MG CAPSULE. PO PRN (14:15)
[2018-03-31] MEDS ORDERED: ONDANSETRON PF 4 MG/2 ML VIAL. IV PRN (14:15)
[2018-03-31] MEDS ORDERED: MIDAZOLAM HCL/PF 2 MG/2 ML VIAL. IV PRN (15:00)
[2018-03-31] MEDS ORDERED: fentaNYL PF VIAL 100 MCG/2 ML VIAL IV PRN ×2 (15:00)
[2018-03-31] MEDS ORDERED: LIDOCAINE 1% PF 2 ML VIAL. ID PRN (15:00)
[2018-03-31] MEDS: IV RINGERS,LACTATED 1000ML 1,000 ML IV SCH ×2 (15:00→20:10)
[2018-03-31] MEDS ORDERED: IOHEXOL 300 MG/ML 100ML VIAL. ONE (15:07)
--- NOTE | 2018-03-31 17:32 | PDOC4 ---
Operative Note Operative Note ERCP with sphincterotomy meds propofol per anesthesia Pre-op dx transaminitis/abnl IOC Post-op dx s/p sphincterotomy with retained sludge s/p extraction Plan labs in am advance diet as tolerated in am RU MADISON MD Mar 31, 2018 17:32
--- NOTE | 2018-03-31 19:37 | RAD ---
EXAM: ERCP. HISTORY: Choledocholithiasis. COMPARISON: Sonogram dated 03/30/2018. FINDINGS: 4 fluoroscopic images were obtained during an ERCP. There is cannulation of the ampulla and contrast opacification of the biliary tree. There is mild biliary ductal dilatation. There is a balloon within the distal common bile duct on the next last image. There is no clear filling defect or cyst a stone on the final image. The total fluoroscopy time is not included on the submitted images. IMPRESSION: Mild biliary ductal dilatation. No convincing retained stone is seen on the final image. Electronically signed by: Yamilet Contreras MD (03/31/2018 7:34 PM) [facility]
[2018-03-31 20:55] LABS: BILIRUBIN,URINE NEGATIVE (NEG); CLARITY,URINE CLEAR; COLOR,URINE AMBER; NITRITE,URINE NEGATIVE (NEG); PROTEIN,URINE NEGATIVE (NEG-TRACE)
[2018-03-31 21:21] LABS: BACTERIA,URINE FEW /HPF (0-FEW); RBC,URINE OCC /HPF (0-2); SQUAMOUS EPITHELIAL CELL,UR MANY /LPF
[2018-03-31 21:22] LABS: HYALINE CASTS, URINE FEW /HPF
[2018-04-01 03:00] VITALS: BP 138/65
[2018-04-01 04:33] LABS: BASO # 0.1 x10^3/uL (0.0-0.2); BASO % 0 % (0-3); EOS % 0 % (0-3); HEMATOCRIT 41.3 % (36.0-47.0); HEMOGLOBIN 13.7 g/dL (12.0-15.5); LYMPH # 4.1 x10^3/uL (1.0-4.8); LYMPH % 29 % (24-48); MEAN CORPUSCULAR HEMOGLOBIN 29 pg (25-35); MEAN CORPUSCULAR HGB CONC 33 g/dL (31-37); MEAN CORPUSCULAR VOLUME 87 fL (79-100); MONO # 1.1 x10^3/uL (0.0-1.1); MONO % 8 % (0-9); NEUT # 8.9 x10^3uL (1.8-7.7); NEUT % 63 % (31-73); PLATELET COUNT 214 x10^3/uL (140-400); RED BLOOD COUNT 4.73 x10^6/uL (3.50-5.40); RED CELL DISTRIBUTION WIDTH 14.1 % (11.5-14.5); WHITE BLOOD COUNT 14.1 x10^3/uL (4.0-11.0)
[2018-04-01 04:48] LABS: ALBUMIN/GLOBULIN RATIO 0.8 (1.0-1.7); CALCIUM 8.8 mg/dL (8.5-10.1); CREATININE 0.7 mg/dL (0.6-1.0); DIRECT BILIRUBIN 0.4 mg/dL (0.0-0.2); GFR 83.5; POTASSIUM 3.2 mmol/L (3.5-5.1); TOTAL BILIRUBIN 1.1 mg/dL (0.2-1.0); TOTAL PROTEIN 6.7 g/dL (6.4-8.2)
[2018-04-01 07:00] VITALS: BP 138/63
[2018-04-01] MEDS ORDERED: LISI30TA4 PO (10:20)
[2018-04-01] MEDS ORDERED: SIMV20TA3 PO (10:21)
--- NOTE | 2018-04-01 10:54 | PDOC ---
Subjective: Subjective: Feeling better. Maybe had a little abd pain and nausea but not bad. Tolerating clears. Objective: Objective: D/w Dr. Sierra. Vital Signs: Vital Signs Date Time Temp Pulse Resp B/P (MAP) Pulse Ox O2 Delivery O2 Flow Rate FiO2 04/01/18 07:00 98.8 91 18 138/63 (88) 90 Room Air 98.8 03/31/18 22:45 2.0 Labs: Laboratory Tests Test 03/31/18 20:30 04/01/18 03:25 Urine Collection Type Unknown Urine Color Jessica Urine Clarity Clear Urine pH 6.0 Urine Specific [place] 1.020 Urine Protein Negative mg/dL Urine Glucose (UA) Negative mg/dL Urine Ketones (Stick) Trace mg/dL Urine Blood Negative Urine Nitrite Negative Urine Bilirubin Negative Urine Urobilinogen Dipstick 1.0 mg/dL Urine Leukocyte Esterase Trace Urine RBC Occ /HPF Urine WBC 5-10 /HPF Urine Squamous Epithelial Cells Many /LPF Urine Bacteria Few /HPF Urine Hyaline Casts Few /HPF Urine Mucus Marked /LPF White Blood Count 14.1 x10^3/uL Red Blood Count 4.73 x10^6/uL Hemoglobin 13.7 g/dL Hematocrit 41.3 % Mean Corpuscular Volume 87 fL Mean Corpuscular Hemoglobin 29 pg Mean Corpuscular Hemoglobin Concent 33 g/dL Red Cell Distribution Width 14.1 % Platelet Count 214 x10^3/uL Neutrophils (%) (Auto) 63 % Lymphocytes (%) (Auto) 29 % Monocytes (%) (Auto) 8 % Eosinophils (%) (Auto) 0 % Basophils (%) (Auto) 0 % Neutrophils # (Auto) 8.9 x10^3uL Lymphocytes # (Auto) 4.1 x10^3/uL Monocytes # (Auto) 1.1 x10^3/uL Eosinophils # (Auto) 0.0 x10^3/uL Basophils # (Auto) 0.1 x10^3/uL Sodium Level 143 mmol/L Potassium Level 3.2 mmol/L Chloride Level 103 mmol/L Carbon Dioxide Level 32 mmol/L Anion Gap 8 Blood Urea Nitrogen 13 mg/dL Creatinine 0.7 mg/dL Estimated GFR (Cockcroft-Gault) 83.5 BUN/Creatinine Ratio 19 Glucose Level 134 mg/dL Calcium Level 8.8 mg/dL Total Bilirubin 1.1 mg/dL Direct Bilirubin 0.4 mg/dL Aspartate Amino Transf (AST/SGOT) 131 U/L Alanine Aminotransferase (ALT/SGPT) 287 U/L Alkaline Phosphatase 126 U/L Total Protein 6.7 g/dL Albumin 3.0 g/dL Albumin/Globulin Ratio 0.8 Amylase Level 316 U/L Lipase 3261 U/L Imaging: ERCP IMPRESSION: Mild biliary ductal dilatation. No convincing retained stone is seen on the final image. s/p sphincterotomy with retained sludge s/p extraction PE: GEN: NAD, standing up talking on the phone LUNGS: CTAB HEART: RRR ABD: BS+, not particularly tender NEURO/PSYCH: A & O 3 A/P: S/p cholecystectomy and ERCP w/ sphincterotomy, post-ERCP pancreatitis -- Supportive care - okay to keep to clears for today, plan to advance tomorrow. Plans to recheck labs in [place].GIA Claudio Apr 01, 2018 10:54
[2018-04-01 11:00] VITALS: BP 126/69
[2018-04-01] MEDS: POTASSIUM CL 20MEQ D5-0.9%NACL 1,000 ML IV SCH ×2 (12:05→20:40)
[2018-04-01] MEDS: LISINOPRIL 10 MG TABLET PO SCH (12:07)
--- NOTE | 2018-04-01 12:27 | PDOC ---
PROGRESS NOTES Chief Complaint Chief Complaint abd pain with acute calculus cholecystitis s/p lap cholecystectomy 03/30, ERCP sphincterotomy and retained sludge removal elevated LFT with CBD obstruction HTN post ERCP pancreatitis hypokalemia plan; fu with sx. fu with GI, ERC 03/31 add ivf pain control LFT tmr, lipase tmr clear liquid diet resume lisinopril, hold statin given high LFT dvt ppx replete K ua, ucx. repeat since pt has dysuria post op History of Present Illness History of Present Illness ROS: no fever, chills,sob or chest pain bl upper abd pain, mild post op c/o mild dysuria post op no BM post op 03/30, has Flatus acute pancreatitis post ERCP 03/31 LFT slightly better Vitals Vitals Vital Signs Date Time Temp Pulse Resp B/P (MAP) Pulse Ox O2 Delivery O2 Flow Rate FiO2 04/01/18 12:07 83 126/69 04/01/18 11:00 98.3 18 93 Room Air 98.3 03/31/18 22:45 2.0 Physical Exam General: Alert, Oriented X3, Cooperative, No acute distress Heart: Regular rate, Normal S1, Normal S2, No murmurs Lungs: Clear Abdomen: Soft, Other (ND, ALEENA serosang, lap dressings dry. no BS.) Extremities: No clubbing, No cyanosis Skin: No rashes, No breakdown Labs LABS Laboratory Tests Test 03/31/18 20:30 04/01/18 03:25 Urine Collection Type Unknown Urine Color Jessica Urine Clarity Clear Urine pH 6.0 Urine Specific [place] 1.020 Urine Protein Negative mg/dL (NEG-TRACE) Urine Glucose (UA) Negative mg/dL (NEG) Urine Ketones (Stick) Trace mg/dL (NEG) Urine Blood Negative (NEG) Urine Nitrite Negative (NEG) Urine Bilirubin Negative (NEG) Urine Urobilinogen Dipstick 1.0 mg/dL (0.2 mg/dL) Urine Leukocyte Esterase Trace (NEG) Urine RBC Occ /HPF (0-2) Urine WBC 5-10 /HPF (0-4) Urine Squamous Epithelial Cells Many /LPF Urine Bacteria Few /HPF (0-FEW) Urine Hyaline Casts Few /HPF Urine Mucus Marked /LPF White Blood Count 14.1 x10^3/uL (4.0-11.0) Red Blood Count 4.73 x10^6/uL (3.50-5.40) Hemoglobin 13.7 g/dL (12.0-15.5) Hematocrit 41.3 % (36.0-47.0) Mean Corpuscular Volume 87 fL (79-100) Mean Corpuscular Hemoglobin 29 pg (25-35) Mean Corpuscular Hemoglobin Concent 33 g/dL (31-37) Red Cell Distribution Width 14.1 % (11.5-14.5) Platelet Count 214 x10^3/uL (140-400) Neutrophils (%) (Auto) 63 % (31-73) Lymphocytes (%) (Auto) 29 % (24-48) Monocytes (%) (Auto) 8 % (0-9) Eosinophils (%) (Auto) 0 % (0-3) Basophils (%) (Auto) 0 % (0-3) Neutrophils # (Auto) 8.9 x10^3uL (1.8-7.7) Lymphocytes # (Auto) 4.1 x10^3/uL (1.0-4.8) Monocytes # (Auto) 1.1 x10^3/uL (0.0-1.1) Eosinophils # (Auto) 0.0 x10^3/uL (0.0-0.7) Basophils # (Auto) 0.1 x10^3/uL (0.0-0.2) Sodium Level 143 mmol/L (136-145) Potassium Level 3.2 mmol/L (3.5-5.1) Chloride Level 103 mmol/L (98-107) Carbon Dioxide Level 32 mmol/L (21-32) Anion Gap 8 (6-14) Blood Urea Nitrogen 13 mg/dL (7-20) Creatinine 0.7 mg/dL (0.6-1.0) Estimated GFR (Cockcroft-Gault) 83.5 BUN/Creatinine Ratio 19 (6-20) Glucose Level 134 mg/dL (70-99) Calcium Level 8.8 mg/dL (8.5-10.1) Total Bilirubin 1.1 mg/dL (0.2-1.0) Direct Bilirubin 0.4 mg/dL (0.0-0.2) Aspartate Amino Transf (AST/SGOT) 131 U/L (15-37) Alanine Aminotransferase (ALT/SGPT) 287 U/L (14-59) Alkaline Phosphatase 126 U/L (46-116) Total Protein 6.7 g/dL (6.4-8.2) Albumin 3.0 g/dL (3.4-5.0) Albumin/Globulin Ratio 0.8 (1.0-1.7) Amylase Level 316 U/L (25-115) Lipase 3261 U/L (73-393) Comment Review of Relevant I have reviewed the following items jaclyn (where applicable) has been applied. Labs Laboratory Tests Test 03/30/18 15:37 03/31/18 02:55 03/31/18 08:30 03/31/18 20:30 Glucose (Fingerstick) 170 mg/dL (70-99) White Blood Count 13.6 x10^3/uL (4.0-11.0) Red Blood Count 5.08 x10^6/uL (3.50-5.40) Hemoglobin 14.5 g/dL (12.0-15.5) Hematocrit 44.1 % (36.0-47.0) Mean Corpuscular Volume 87 fL (79-100) Mean Corpuscular Hemoglobin 29 pg (25-35) Mean Corpuscular Hemoglobin Concent 33 g/dL (31-37) Red Cell Distribution Width 13.9 % (11.5-14.5) Platelet Count 240 x10^3/uL (140-400) Neutrophils (%) (Auto) 86 % (31-73) Lymphocytes (%) (Auto) 9 % (24-48) Monocytes (%) (Auto) 5 % (0-9) Eosinophils (%) (Auto) 0 % (0-3) Basophils (%) (Auto) 0 % (0-3) Neutrophils # (Auto) 11.8 x10^3uL (1.8-7.7) Lymphocytes # (Auto) 1.2 x10^3/uL (1.0-4.8) Monocytes # (Auto) 0.7 x10^3/uL (0.0-1.1) Eosinophils # (Auto) 0.0 x10^3/uL (0.0-0.7) Basophils # (Auto) 0.0 x10^3/uL (0.0-0.2) Segmented Neutrophils % 82 % (35-66) Band Neutrophils % 2 % (0-9) Lymphocytes % 11 % (24-48) Monocytes % 5 % (0-10) Platelet Estimate Adequate (ADEQUATE) Sodium Level 142 mmol/L (136-145) Potassium Level 4.5 mmol/L (3.5-5.1) Chloride Level 104 mmol/L (98-107) Carbon Dioxide Level 29 mmol/L (21-32) Anion Gap 9 (6-14) Blood Urea Nitrogen 6 mg/dL (7-20) Creatinine 0.7 mg/dL (0.6-1.0) Estimated GFR (Cockcroft-Gault) 83.5 BUN/Creatinine Ratio 9 (6-20) Glucose Level 160 mg/dL (70-99) Calcium Level 9.3 mg/dL (8.5-10.1) Total Bilirubin 2.9 mg/dL (0.2-1.0) Direct Bilirubin 2.0 mg/dL (0.0-0.2) Aspartate Amino Transf (AST/SGOT) 463 U/L (15-37) Alanine Aminotransferase (ALT/SGPT) 537 U/L (14-59) Alkaline Phosphatase 156 U/L (46-116) Total Protein 7.3 g/dL (6.4-8.2) Albumin 3.2 g/dL (3.4-5.0) Albumin/Globulin Ratio 0.8 (1.0-1.7) Prothrombin Time 12.8 SEC (11.7-14.0) Prothromb Time International Ratio 1.0 (0.8-1.1) Urine Collection Type Unknown Urine Color Jessica Urine Clarity Clear Urine pH 6.0 Urine Specific [place] 1.020 Urine Protein Negative mg/dL (NEG-TRACE) Urine Glucose (UA) Negative mg/dL (NEG) Urine Ketones (Stick) Trace mg/dL (NEG) Urine Blood Negative (NEG) Urine Nitrite Negative (NEG) Urine Bilirubin Negative (NEG) Urine Urobilinogen Dipstick 1.0 mg/dL (0.2 mg/dL) Urine Leukocyte Esterase Trace (NEG) Urine RBC Occ /HPF (0-2) Urine WBC 5-10 /HPF (0-4) Urine Squamous Epithelial Cells Many /LPF Urine Bacteria Few /HPF (0-FEW) Urine Hyaline Casts Few /HPF Urine Mucus Marked /LPF Test 04/01/18 03:25 White Blood Count 14.1 x10^3/uL (4.0-11.0) Red Blood Count 4.73 x10^6/uL (3.50-5.40) Hemoglobin 13.7 g/dL (12.0-15.5) Hematocrit 41.3 % (36.0-47.0) Mean Corpuscular Volume 87 fL (79-100) Mean Corpuscular Hemoglobin 29 pg (25-35) Mean Corpuscular Hemoglobin Concent 33 g/dL (31-37) Red Cell Distribution Width 14.1 % (11.5-14.5) Platelet Count 214 x10^3/uL (140-400) Neutrophils (%) (Auto) 63 % (31-73) Lymphocytes (%) (Auto) 29 % (24-48) Monocytes (%) (Auto) 8 % (0-9) Eosinophils (%) (Auto) 0 % (0-3) Basophils (%) (Auto) 0 % (0-3) Neutrophils # (Auto) 8.9 x10^3uL (1.8-7.7) Lymphocytes # (Auto) 4.1 x10^3/uL (1.0-4.8) Monocytes # (Auto) 1.1 x10^3/uL (0.0-1.1) Eosinophils # (Auto) 0.0 x10^3/uL (0.0-0.7) Basophils # (Auto) 0.1 x10^3/uL (0.0-0.2) Sodium Level 143 mmol/L (136-145) Potassium Level 3.2 mmol/L (3.5-5.1) Chloride Level 103 mmol/L (98-107) Carbon Dioxide Level 32 mmol/L (21-32) Anion Gap 8 (6-14) Blood Urea Nitrogen 13 mg/dL (7-20) Creatinine 0.7 mg/dL (0.6-1.0) Estimated GFR (Cockcroft-Gault) 83.5 BUN/Creatinine Ratio 19 (6-20) Glucose Level 134 mg/dL (70-99) Calcium Level 8.8 mg/dL (8.5-10.1) Total Bilirubin 1.1 mg/dL (0.2-1.0) Direct Bilirubin 0.4 mg/dL (0.0-0.2) Aspartate Amino Transf (AST/SGOT) 131 U/L (15-37) Alanine Aminotransferase (ALT/SGPT) 287 U/L (14-59) Alkaline Phosphatase 126 U/L (46-116) Total Protein 6.7 g/dL (6.4-8.2) Albumin 3.0 g/dL (3.4-5.0) Albumin/Globulin Ratio 0.8 (1.0-1.7) Amylase Level 316 U/L (25-115) Lipase 3261 U/L (73-393) Laboratory Tests Test 03/31/18 20:30 04/01/18 03:25 Urine Collection Type Unknown Urine Color Jessica Urine Clarity Clear Urine pH 6.0 Urine Specific [place] 1.020 Urine Protein Negative mg/dL (NEG-TRACE) Urine Glucose (UA) Negative mg/dL (NEG) Urine Ketones (Stick) Trace mg/dL (NEG) Urine Blood Negative (NEG) Urine Nitrite Negative (NEG) Urine Bilirubin Negative (NEG) Urine Urobilinogen Dipstick 1.0 mg/dL (0.2 mg/dL) Urine Leukocyte Esterase Trace (NEG) Urine RBC Occ /HPF (0-2) Urine WBC 5-10 /HPF (0-4) Urine Squamous Epithelial Cells Many /LPF Urine Bacteria Few /HPF (0-FEW) Urine Hyaline Casts Few /HPF Urine Mucus Marked /LPF White Blood Count 14.1 x10^3/uL (4.0-11.0) Red Blood Count 4.73 x10^6/uL (3.50-5.40) Hemoglobin 13.7 g/dL (12.0-15.5) Hematocrit 41.3 % (36.0-47.0) Mean Corpuscular Volume 87 fL (79-100) Mean Corpuscular Hemoglobin 29 pg (25-35) Mean Corpuscular Hemoglobin Concent 33 g/dL (31-37) Red Cell Distribution Width 14.1 % (11.5-14.5) Platelet Count 214 x10^3/uL (140-400) Neutrophils (%) (Auto) 63 % (31-73) Lymphocytes (%) (Auto) 29 % (24-48) Monocytes (%) (Auto) 8 % (0-9) Eosinophils (%) (Auto) 0 % (0-3) Basophils (%) (Auto) 0 % (0-3) Neutrophils # (Auto) 8.9 x10^3uL (1.8-7.7) Lymphocytes # (Auto) 4.1 x10^3/uL (1.0-4.8) Monocytes # (Auto) 1.1 x10^3/uL (0.0-1.1) Eosinophils # (Auto) 0.0 x10^3/uL (0.0-0.7) Basophils # (Auto) 0.1 x10^3/uL (0.0-0.2) Sodium Level 143 mmol/L (136-145) Potassium Level 3.2 mmol/L (3.5-5.1) Chloride Level 103 mmol/L (98-107) Carbon Dioxide Level 32 mmol/L (21-32) Anion Gap 8 (6-14) Blood Urea Nitrogen 13 mg/dL (7-20) Creatinine 0.7 mg/dL (0.6-1.0) Estimated GFR (Cockcroft-Gault) 83.5 BUN/Creatinine Ratio 19 (6-20) Glucose Level 134 mg/dL (70-99) Calcium Level 8.8 mg/dL (8.5-10.1) Total Bilirubin 1.1 mg/dL (0.2-1.0) Direct Bilirubin 0.4 mg/dL (0.0-0.2) Aspartate Amino Transf (AST/SGOT) 131 U/L (15-37) Alanine Aminotransferase (ALT/SGPT) 287 U/L (14-59) Alkaline Phosphatase 126 U/L (46-116) Total Protein 6.7 g/dL (6.4-8.2) Albumin 3.0 g/dL (3.4-5.0) Albumin/Globulin Ratio 0.8 (1.0-1.7) Amylase Level 316 U/L (25-115) Lipase 3261 U/L (73-393) Medications Current Medications Sodium Chloride 1,000 ml @ 1,000 mls/hr 1X ONCE IV Last administered on at 07:32; Start 03/30/18 at 07:15; Stop 03/30/18 at 08:14; Status DC Famotidine (Pepcid Vial) 20 mg 1X ONCE IVP Last administered on 03/30/18at 07: 31; Start 03/30/18 at 07:15; Stop 03/30/18 at 07:27; Status DC Morphine Sulfate (Morphine Sulfate) 4 mg 1X ONCE IV Last administered on at 07:32; Start 03/30/18 at 07:15; Stop 03/30/18 at 07:27; Status DC Ondansetron HCl (Zofran) 4 mg 1X ONCE IV Last administered on 03/30/18at 07:31 ; Start 03/30/18 at 07:15; Stop 03/30/18 at 07:27; Status DC Ondansetron HCl (Zofran) 4 mg PRN Q8HRS PRN IV NAUSEA/VOMITING; Start 03/30/18 at 09:45; Stop 03/31/18 at 09:44; Status DC Morphine Sulfate (Morphine Sulfate) 4 mg PRN Q2HR PRN IV PAIN; Start 03/30/18 at 09:45; Stop 03/31/18 at 09:44; Status DC Ondansetron HCl (Zofran) 4 mg PRN Q6HRS PRN IV NAUSEA/VOMITING; Start 03/30/18 at 11:30; Stop 03/30/18 at 19:00; Status DC Fentanyl Citrate (Fentanyl 2ml Vial) 25 mcg PRN Q5MIN PRN IV MILD PAIN; Start 03/30/18 at 11:30; Stop 03/31/18 at 11:29; Status DC Fentanyl Citrate (Fentanyl 2ml Vial) 50 mcg PRN Q5MIN PRN IV MODERATE TO SEVERE PAIN Last administered on 03/30/18at 15:38; Start 03/30/18 at 11:30; Stop 03/31/18 at 11:29; Status DC Morphine Sulfate (Morphine Sulfate) 1 mg PRN Q10MIN PRN IV SEVERE PAIN; Start 03/30/18 at 11:30; Stop 03/31/18 at 11:29; Status DC Ringer's Solution 1,000 ml @ 30 mls/hr Q24H IV ; Start 03/30/18 at 11:22; Stop 03/30/18 at 23:21; Status DC Lidocaine HCl (Xylocaine-Mpf 1% 2ml Vial) 2 ml 1X PRN PRN ID IV START; Start 03/30/18 at 11:30; Stop 03/31/18 at 11:29; Status DC Hydromorphone HCl (Dilaudid) 0.5 mg PRN Q10MIN PRN IV SEV PAIN, Second choice; Start 03/30/18 at 11:30; Stop 03/31/18 at 11:29; Status DC Prochlorperazine Edisylate (Compazine) 5 mg PACU PRN PRN IV NAUSEA, MRX1 Last administered on 03/30/18at 15:29; Start 03/30/18 at 11:30; Stop 03/31/18 at 11:29 ; Status DC Cefazolin Sodium/ Dextrose 50 ml @ 100 mls/hr 1X PREOP PRN IV cardiac rehabilitation specialist to or; Start 03/30/18 at 11:45; Stop 03/30/18 at 18:00; Status DC Propofol 20 ml @ As Directed STK-MED ONCE IV ; Start 03/30/18 at 12:50; Stop at 12:51; Status DC Famotidine (Pepcid Vial) 20 mg STK-MED ONCE .ROUTE ; Start 03/30/18 at 12:50; Stop 03/30/18 at 12:51; Status DC Dexamethasone Sodium Phosphate (Decadron) 20 mg STK-MED ONCE .ROUTE ; Start 03/30/18 at 12:50; Stop 03/30/18 at 12:51; Status DC Lidocaine HCl (Lidocaine Pf 2% Vial) 5 ml STK-MED ONCE .ROUTE ; Start 03/30/18 at 12:50; Stop 03/30/18 at 12:51; Status DC Ondansetron HCl (Zofran) 4 mg STK-MED ONCE .ROUTE ; Start 03/30/18 at 12:50; Stop 03/30/18 at 12:51; Status DC Midazolam HCl (Versed) 2 mg STK-MED ONCE .ROUTE ; Start 03/30/18 at 13:07; Stop 03/30/18 at 13:08; Status DC Fentanyl Citrate (Fentanyl 2ml Vial) 100 mcg STK-MED ONCE .ROUTE ; Start at 13:07; Stop 03/30/18 at 13:08; Status DC Rocuronium [place] (Zemuron) 50 mg STK-MED ONCE .ROUTE ; Start 03/30/18 at 13:07 ; Stop 03/30/18 at 13:08; Status DC Iohexol (Omnipaque 300 Mg/ml) 100 ml STK-MED ONCE .ROUTE ; Start 03/30/18 at 13: 09; Stop 03/30/18 at 13:10; Status DC Bupivacaine HCl/ Epinephrine Bitart (Sensorcain-Mpf Epi 0.5%-[id number]) 30 ml STK -MED ONCE INJ Last administered on 03/30/18at 14:02; Start 03/30/18 at 14:02; Stop 03/30/18 at 14:17; Status DC Iohexol (Omnipaque 300 Mg/ml) 50 ml STK-MED ONCE INT CAT Last administered on 03/30/18at 14:02; Start 03/30/18 at 14:02; Stop 03/30/18 at 14:17; Status DC Ephedrine Sulfate (ePHEDrine PF IN SALINE SYRINGE) 50 mg STK-MED ONCE IV ; Start 03/30/18 at 14:11; Stop 03/30/18 at 14:12; Status DC Glucagon (Glucagen) 1 mg STK-MED ONCE .ROUTE ; Start 03/30/18 at 14:31; Stop at 14:32; Status DC Glucagon (Glucagen) 1 mg STK-MED ONCE IV Last administered on 03/30/18at 14:35; Start 03/30/18 at 14:35; Stop 03/30/18 at 14:42; Status DC Glycopyrrolate (Robinul) 1 mg STK-MED ONCE .ROUTE ; Start 03/30/18 at 14:51; Stop 03/30/18 at 14:52; Status DC Neostigmine Methylsulfate (Neostigmine Methylsulfate) 5 mg STK-MED ONCE .ROUTE ; Start 03/30/18 at 14:51; Stop 03/30/18 at 14:52; Status DC Desflurane (Suprane) 60 ml STK-MED ONCE IH ; Start 03/30/18 at 14:58; Stop 03/30 at 14:59; Status DC Fentanyl Citrate (Fentanyl 2ml Vial) 100 mcg STK-MED ONCE .ROUTE ; Start at 15:17; Stop 03/30/18 at 15:18; Status DC Prochlorperazine Edisylate (Compazine) 10 mg STK-MED ONCE .ROUTE ; Start at 15:17; Stop 03/30/18 at 15:18; Status DC Labetalol HCl (Normodyne Iv Push) 20 mg PRN Q2HR PRN IVP HYPERTENSION, SEE COMMENTS Last administered on 03/31/18at 20:36; Start 03/30/18 at 16:30 Cefazolin Sodium/ Dextrose (Ancef 2gm Premix) 2 gm STK-MED ONCE IV ; Start 03/30 at 12:00; Stop 03/31/18 at 08:51; Status DC Acetaminophen (Tylenol) 650 mg PRN Q6HRS PRN PO FEVER; Start 03/31/18 at 14:15 Ondansetron HCl (Zofran) 4 mg PRN Q6HRS PRN IV NAUSEA/VOMITING; Start 03/31/18 at 14:15 Morphine Sulfate (Morphine Sulfate) 2 mg PRN Q2HR PRN IV MODERATE TO SEVERE PAIN; Start 03/31/18 at 14:15 Tramadol HCl (Ultram) 50 mg PRN Q6HRS PRN PO MILD TO MODERATE PAIN; Start 03/31 at 14:15 Docusate Sodium (Colace) 100 mg PRN DAILY PRN PO CONSTIPATION; Start 03/31/18 at 14:15 Midazolam HCl (Versed) 2 mg PRN 1X PRN IV PRIOR TO PROCEDURE; Start 03/31/18 at 15:00; Stop 04/01/18 at 14:59 Fentanyl Citrate (Fentanyl 2ml Vial) 25 mcg PRN Q5MIN PRN IV X 2 DOSES FOR PAIN ; Start 03/31/18 at 15:00; Stop 04/01/18 at 14:59 Fentanyl Citrate (Fentanyl 2ml Vial) 50 mcg PRN Q5MIN PRN IV X 2 DOSES FOR PAIN ; Start 03/31/18 at 15:00; Stop 04/01/18 at 14:59 Ringer's Solution 1,000 ml @ 125 mls/hr Q8H IV Last administered on 03/31/18at 15:00; Start 03/31/18 at 14:48; Stop 04/01/18 at 02:48; Status DC Lidocaine HCl (Xylocaine-Mpf 1% 2ml Vial) 2 ml 1X PRN PRN ID IV START; Start 03/31/18 at 15:00; Stop 04/01/18 at 14:59 Iohexol (Omnipaque 300 Mg/ml) 100 ml STK-MED ONCE .ROUTE ; Start 03/31/18 at 15: 07; Stop 03/31/18 at 15:08; Status DC Propofol (Diprivan) 200 mg STK-MED ONCE IV ; Start 03/31/18 at 14:00; Stop 04/01 at 08:55; Status DC Succinylcholine Chloride (Anectine) 200 mg STK-MED ONCE .ROUTE ; Start 03/31/18 at 14:00; Stop 04/01/18 at 08:55; Status DC Lisinopril (Prinivil) 30 mg DAILY PO Last administered on 04/01/18at 12:07; Start 04/01/18 at 11:00 Potassium Chloride/Dextrose/ Sod Cl 1,000 ml @ 100 mls/hr Q10H IV Last administered on 04/01/18at 12:05; Start 04/01/18 at 10:30 Throat Lozenges (Cepacol Sore Throat Lozenge) 1 karlos PRN Q2HRS PRN PO SORE THROAT; Start 04/01/18 at 12:30; Status UNV Active Scripts Active Reported Lisinopril 30 Mg Tablet 1 Tab PO DAILY Vitals/I & O Vital Sign - Last 24 Hours 03/31/18 03/31/18 03/31/18 03/31/18 14:49 14:52 17:33 17:43 Temp 98.6 98.6 98.6 98.6 98.6 98.6 Pulse 86 77 52 Resp 18 20 20 B/P (MAP) 163/78 205/87 Pulse Ox 92 100 100 O2 Delivery Nasal Cannula Nasal Cannula Nasal Cannula O2 Flow Rate 2.0 03/31/18 03/31/18 03/31/18 03/31/18 17:47 17:57 19:00 19:15 Temp 98.6 98.6 98.4 98.6 98.6 98.4 Pulse 89 84 87 78 Resp 20 20 18 18 B/P (MAP) 190/81 170/71 161/76 (104) 165/77 (106) Pulse Ox 100 99 96 100 O2 Delivery NonRebreather Mask Room Air Nasal Cannula Nasal Cannula O2 Flow Rate 2.0 2.0 03/31/18 03/31/18 03/31/18 03/31/18 19:30 19:45 20:00 20:15 Pulse 78 78 78 Resp 18 B/P (MAP) 168/77 (107) 168/75 (106) 165/77 (106) Pulse Ox 100 100 100 O2 Delivery Nasal Cannula Nasal Cannula Nasal Cannula Nasal Cannula O2 Flow Rate 2.0 2.0 2.0 2.0 03/31/18 03/31/18 03/31/18 03/31/18 20:36 20:45 21:45 22:45 Temp 98.9 98.9 Pulse 86 76 79 88 Resp 18 B/P (MAP) 187/88 168/75 (106) 187/88 (121) 134/52 (79) Pulse Ox 100 97 96 O2 Delivery Nasal Cannula Nasal Cannula Nasal Cannula O2 Flow Rate 2.0 2.0 04/01/18 04/01/18 04/01/18 04/01/18 03:00 07:00 11:00 12:07 Temp 98.4 98.8 98.3 98.4 98.8 98.3 Pulse 80 91 83 83 Resp 18 18 18 B/P (MAP) 138/65 (89) 138/63 (88) 126/69 (88) 126/69 Pulse Ox 95 90 93 O2 Delivery Room Air Room Air Room Air Intake and Output 03/31/18 03/31/18 04/01/18 15:00 23:00 07:00 Intake Total 0 ml Output Total 130 ml 310 ml Balance -130 ml -310 ml MINDI BREWSTER MD Apr 01, 2018 12:27
[2018-04-01] MEDS ORDERED: BENZOCAINE/MENTHOL LOZENGE. PO PRN (12:30)
[2018-04-01] MEDS ORDERED: POTASSIUM CHLORIDE 20 MEQ TABLET.ER. PO ONE (12:30)
--- NOTE | 2018-04-01 12:31 | PDOC ---
PROGRESS NOTES Subjective Subjective some mid abdominal discomfort Objective Objective Vital Signs Date Time Temp Pulse Resp B/P (MAP) Pulse Ox O2 Delivery O2 Flow Rate FiO2 04/01/18 12:07 83 126/69 04/01/18 11:00 98.3 18 93 Room Air 98.3 03/31/18 22:45 2.0 Intake and Output 04/01/18 07:00 Intake Total 0 ml Output Total 440 ml Balance -440 ml Intake Oral 0 ml Output Urine Total 310 ml Drainage Total 130 ml # Voids 4 Physical Exam Physical Exam abdomen soft, ALEENA serosang Assessment Assessment S/P lap steven, ERCP Plan Plan of Care Discharge per primary team, will DC drain prior to discharge Comment Review of Relevant I have reviewed the following items jaclyn (where applicable) has been applied. Labs Laboratory Tests Test 03/30/18 15:37 03/31/18 02:55 03/31/18 08:30 03/31/18 20:30 Glucose (Fingerstick) 170 mg/dL (70-99) White Blood Count 13.6 x10^3/uL (4.0-11.0) Red Blood Count 5.08 x10^6/uL (3.50-5.40) Hemoglobin 14.5 g/dL (12.0-15.5) Hematocrit 44.1 % (36.0-47.0) Mean Corpuscular Volume 87 fL (79-100) Mean Corpuscular Hemoglobin 29 pg (25-35) Mean Corpuscular Hemoglobin Concent 33 g/dL (31-37) Red Cell Distribution Width 13.9 % (11.5-14.5) Platelet Count 240 x10^3/uL (140-400) Neutrophils (%) (Auto) 86 % (31-73) Lymphocytes (%) (Auto) 9 % (24-48) Monocytes (%) (Auto) 5 % (0-9) Eosinophils (%) (Auto) 0 % (0-3) Basophils (%) (Auto) 0 % (0-3) Neutrophils # (Auto) 11.8 x10^3uL (1.8-7.7) Lymphocytes # (Auto) 1.2 x10^3/uL (1.0-4.8) Monocytes # (Auto) 0.7 x10^3/uL (0.0-1.1) Eosinophils # (Auto) 0.0 x10^3/uL (0.0-0.7) Basophils # (Auto) 0.0 x10^3/uL (0.0-0.2) Segmented Neutrophils % 82 % (35-66) Band Neutrophils % 2 % (0-9) Lymphocytes % 11 % (24-48) Monocytes % 5 % (0-10) Platelet Estimate Adequate (ADEQUATE) Sodium Level 142 mmol/L (136-145) Potassium Level 4.5 mmol/L (3.5-5.1) Chloride Level 104 mmol/L (98-107) Carbon Dioxide Level 29 mmol/L (21-32) Anion Gap 9 (6-14) Blood Urea Nitrogen 6 mg/dL (7-20) Creatinine 0.7 mg/dL (0.6-1.0) Estimated GFR (Cockcroft-Gault) 83.5 BUN/Creatinine Ratio 9 (6-20) Glucose Level 160 mg/dL (70-99) Calcium Level 9.3 mg/dL (8.5-10.1) Total Bilirubin 2.9 mg/dL (0.2-1.0) Direct Bilirubin 2.0 mg/dL (0.0-0.2) Aspartate Amino Transf (AST/SGOT) 463 U/L (15-37) Alanine Aminotransferase (ALT/SGPT) 537 U/L (14-59) Alkaline Phosphatase 156 U/L (46-116) Total Protein 7.3 g/dL (6.4-8.2) Albumin 3.2 g/dL (3.4-5.0) Albumin/Globulin Ratio 0.8 (1.0-1.7) Prothrombin Time 12.8 SEC (11.7-14.0) Prothromb Time International Ratio 1.0 (0.8-1.1) Urine Collection Type Unknown Urine Color Jessica Urine Clarity Clear Urine pH 6.0 Urine Specific [place] 1.020 Urine Protein Negative mg/dL (NEG-TRACE) Urine Glucose (UA) Negative mg/dL (NEG) Urine Ketones (Stick) Trace mg/dL (NEG) Urine Blood Negative (NEG) Urine Nitrite Negative (NEG) Urine Bilirubin Negative (NEG) Urine Urobilinogen Dipstick 1.0 mg/dL (0.2 mg/dL) Urine Leukocyte Esterase Trace (NEG) Urine RBC Occ /HPF (0-2) Urine WBC 5-10 /HPF (0-4) Urine Squamous Epithelial Cells Many /LPF Urine Bacteria Few /HPF (0-FEW) Urine Hyaline Casts Few /HPF Urine Mucus Marked /LPF Test 04/01/18 03:25 White Blood Count 14.1 x10^3/uL (4.0-11.0) Red Blood Count 4.73 x10^6/uL (3.50-5.40) Hemoglobin 13.7 g/dL (12.0-15.5) Hematocrit 41.3 % (36.0-47.0) Mean Corpuscular Volume 87 fL (79-100) Mean Corpuscular Hemoglobin 29 pg (25-35) Mean Corpuscular Hemoglobin Concent 33 g/dL (31-37) Red Cell Distribution Width 14.1 % (11.5-14.5) Platelet Count 214 x10^3/uL (140-400) Neutrophils (%) (Auto) 63 % (31-73) Lymphocytes (%) (Auto) 29 % (24-48) Monocytes (%) (Auto) 8 % (0-9) Eosinophils (%) (Auto) 0 % (0-3) Basophils (%) (Auto) 0 % (0-3) Neutrophils # (Auto) 8.9 x10^3uL (1.8-7.7) Lymphocytes # (Auto) 4.1 x10^3/uL (1.0-4.8) Monocytes # (Auto) 1.1 x10^3/uL (0.0-1.1) Eosinophils # (Auto) 0.0 x10^3/uL (0.0-0.7) Basophils # (Auto) 0.1 x10^3/uL (0.0-0.2) Sodium Level 143 mmol/L (136-145) Potassium Level 3.2 mmol/L (3.5-5.1) Chloride Level 103 mmol/L (98-107) Carbon Dioxide Level 32 mmol/L (21-32) Anion Gap 8 (6-14) Blood Urea Nitrogen 13 mg/dL (7-20) Creatinine 0.7 mg/dL (0.6-1.0) Estimated GFR (Cockcroft-Gault) 83.5 BUN/Creatinine Ratio 19 (6-20) Glucose Level 134 mg/dL (70-99) Calcium Level 8.8 mg/dL (8.5-10.1) Total Bilirubin 1.1 mg/dL (0.2-1.0) Direct Bilirubin 0.4 mg/dL (0.0-0.2) Aspartate Amino Transf (AST/SGOT) 131 U/L (15-37) Alanine Aminotransferase (ALT/SGPT) 287 U/L (14-59) Alkaline Phosphatase 126 U/L (46-116) Total Protein 6.7 g/dL (6.4-8.2) Albumin 3.0 g/dL (3.4-5.0) Albumin/Globulin Ratio 0.8 (1.0-1.7) Amylase Level 316 U/L (25-115) Lipase 3261 U/L (73-393) Laboratory Tests Test 03/31/18 20:30 04/01/18 03:25 Urine Collection Type Unknown Urine Color Jessica Urine Clarity Clear Urine pH 6.0 Urine Specific [place] 1.020 Urine Protein Negative mg/dL (NEG-TRACE) Urine Glucose (UA) Negative mg/dL (NEG) Urine Ketones (Stick) Trace mg/dL (NEG) Urine Blood Negative (NEG) Urine Nitrite Negative (NEG) Urine Bilirubin Negative (NEG) Urine Urobilinogen Dipstick 1.0 mg/dL (0.2 mg/dL) Urine Leukocyte Esterase Trace (NEG) Urine RBC Occ /HPF (0-2) Urine WBC 5-10 /HPF (0-4) Urine Squamous Epithelial Cells Many /LPF Urine Bacteria Few /HPF (0-FEW) Urine Hyaline Casts Few /HPF Urine Mucus Marked /LPF White Blood Count 14.1 x10^3/uL (4.0-11.0) Red Blood Count 4.73 x10^6/uL (3.50-5.40) Hemoglobin 13.7 g/dL (12.0-15.5) Hematocrit 41.3 % (36.0-47.0) Mean Corpuscular Volume 87 fL (79-100) Mean Corpuscular Hemoglobin 29 pg (25-35) Mean Corpuscular Hemoglobin Concent 33 g/dL (31-37) Red Cell Distribution Width 14.1 % (11.5-14.5) Platelet Count 214 x10^3/uL (140-400) Neutrophils (%) (Auto) 63 % (31-73) Lymphocytes (%) (Auto) 29 % (24-48) Monocytes (%) (Auto) 8 % (0-9) Eosinophils (%) (Auto) 0 % (0-3) Basophils (%) (Auto) 0 % (0-3) Neutrophils # (Auto) 8.9 x10^3uL (1.8-7.7) Lymphocytes # (Auto) 4.1 x10^3/uL (1.0-4.8) Monocytes # (Auto) 1.1 x10^3/uL (0.0-1.1) Eosinophils # (Auto) 0.0 x10^3/uL (0.0-0.7) Basophils # (Auto) 0.1 x10^3/uL (0.0-0.2) Sodium Level 143 mmol/L (136-145) Potassium Level 3.2 mmol/L (3.5-5.1) Chloride Level 103 mmol/L (98-107) Carbon Dioxide Level 32 mmol/L (21-32) Anion Gap 8 (6-14) Blood Urea Nitrogen 13 mg/dL (7-20) Creatinine 0.7 mg/dL (0.6-1.0) Estimated GFR (Cockcroft-Gault) 83.5 BUN/Creatinine Ratio 19 (6-20) Glucose Level 134 mg/dL (70-99) Calcium Level 8.8 mg/dL (8.5-10.1) Total Bilirubin 1.1 mg/dL (0.2-1.0) Direct Bilirubin 0.4 mg/dL (0.0-0.2) Aspartate Amino Transf (AST/SGOT) 131 U/L (15-37) Alanine Aminotransferase (ALT/SGPT) 287 U/L (14-59) Alkaline Phosphatase 126 U/L (46-116) Total Protein 6.7 g/dL (6.4-8.2) Albumin 3.0 g/dL (3.4-5.0) Albumin/Globulin Ratio 0.8 (1.0-1.7) Amylase Level 316 U/L (25-115) Lipase 3261 U/L (73-393) Medications Current Medications Sodium Chloride 1,000 ml @ 1,000 mls/hr 1X ONCE IV Last administered on at 07:32; Start 03/30/18 at 07:15; Stop 03/30/18 at 08:14; Status DC Famotidine (Pepcid Vial) 20 mg 1X ONCE IVP Last administered on 03/30/18at 07: 31; Start 03/30/18 at 07:15; Stop 03/30/18 at 07:27; Status DC Morphine Sulfate (Morphine Sulfate) 4 mg 1X ONCE IV Last administered on at 07:32; Start 03/30/18 at 07:15; Stop 03/30/18 at 07:27; Status DC Ondansetron HCl (Zofran) 4 mg 1X ONCE IV Last administered on 03/30/18at 07:31 ; Start 03/30/18 at 07:15; Stop 03/30/18 at 07:27; Status DC Ondansetron HCl (Zofran) 4 mg PRN Q8HRS PRN IV NAUSEA/VOMITING; Start 03/30/18 at 09:45; Stop 03/31/18 at 09:44; Status DC Morphine Sulfate (Morphine Sulfate) 4 mg PRN Q2HR PRN IV PAIN; Start 03/30/18 at 09:45; Stop 03/31/18 at 09:44; Status DC Ondansetron HCl (Zofran) 4 mg PRN Q6HRS PRN IV NAUSEA/VOMITING; Start 03/30/18 at 11:30; Stop 03/30/18 at 19:00; Status DC Fentanyl Citrate (Fentanyl 2ml Vial) 25 mcg PRN Q5MIN PRN IV MILD PAIN; Start 03/30/18 at 11:30; Stop 03/31/18 at 11:29; Status DC Fentanyl Citrate (Fentanyl 2ml Vial) 50 mcg PRN Q5MIN PRN IV MODERATE TO SEVERE PAIN Last administered on 03/30/18at 15:38; Start 03/30/18 at 11:30; Stop 03/31/18 at 11:29; Status DC Morphine Sulfate (Morphine Sulfate) 1 mg PRN Q10MIN PRN IV SEVERE PAIN; Start 03/30/18 at 11:30; Stop 03/31/18 at 11:29; Status DC Ringer's Solution 1,000 ml @ 30 mls/hr Q24H IV ; Start 03/30/18 at 11:22; Stop 03/30/18 at 23:21; Status DC Lidocaine HCl (Xylocaine-Mpf 1% 2ml Vial) 2 ml 1X PRN PRN ID IV START; Start 03/30/18 at 11:30; Stop 03/31/18 at 11:29; Status DC Hydromorphone HCl (Dilaudid) 0.5 mg PRN Q10MIN PRN IV SEV PAIN, Second choice; Start 03/30/18 at 11:30; Stop 03/31/18 at 11:29; Status DC Prochlorperazine Edisylate (Compazine) 5 mg PACU PRN PRN IV NAUSEA, MRX1 Last administered on 03/30/18at 15:29; Start 03/30/18 at 11:30; Stop 03/31/18 at 11:29 ; Status DC Cefazolin Sodium/ Dextrose 50 ml @ 100 mls/hr 1X PREOP PRN IV honey producer to or; Start 03/30/18 at 11:45; Stop 03/30/18 at 18:00; Status DC Propofol 20 ml @ As Directed STK-MED ONCE IV ; Start 03/30/18 at 12:50; Stop at 12:51; Status DC Famotidine (Pepcid Vial) 20 mg STK-MED ONCE .ROUTE ; Start 03/30/18 at 12:50; Stop 03/30/18 at 12:51; Status DC Dexamethasone Sodium Phosphate (Decadron) 20 mg STK-MED ONCE .ROUTE ; Start 03/30/18 at 12:50; Stop 03/30/18 at 12:51; Status DC Lidocaine HCl (Lidocaine Pf 2% Vial) 5 ml STK-MED ONCE .ROUTE ; Start 03/30/18 at 12:50; Stop 03/30/18 at 12:51; Status DC Ondansetron HCl (Zofran) 4 mg STK-MED ONCE .ROUTE ; Start 03/30/18 at 12:50; Stop 03/30/18 at 12:51; Status DC Midazolam HCl (Versed) 2 mg STK-MED ONCE .ROUTE ; Start 03/30/18 at 13:07; Stop 03/30/18 at 13:08; Status DC Fentanyl Citrate (Fentanyl 2ml Vial) 100 mcg STK-MED ONCE .ROUTE ; Start at 13:07; Stop 03/30/18 at 13:08; Status DC Rocuronium Byers (Zemuron) 50 mg STK-MED ONCE .ROUTE ; Start 03/30/18 at 13:07 ; Stop 03/30/18 at 13:08; Status DC Iohexol (Omnipaque 300 Mg/ml) 100 ml STK-MED ONCE .ROUTE ; Start 03/30/18 at 13: 09; Stop 03/30/18 at 13:10; Status DC Bupivacaine HCl/ Epinephrine Bitart (Sensorcain-Mpf Epi 0.5%-[id number]) 30 ml STK -MED ONCE INJ Last administered on 03/30/18at 14:02; Start 03/30/18 at 14:02; Stop 03/30/18 at 14:17; Status DC Iohexol (Omnipaque 300 Mg/ml) 50 ml STK-MED ONCE INT CAT Last administered on 03/30/18at 14:02; Start 03/30/18 at 14:02; Stop 03/30/18 at 14:17; Status DC Ephedrine Sulfate (ePHEDrine PF IN SALINE SYRINGE) 50 mg STK-MED ONCE IV ; Start 03/30/18 at 14:11; Stop 03/30/18 at 14:12; Status DC Glucagon (Glucagen) 1 mg STK-MED ONCE .ROUTE ; Start 03/30/18 at 14:31; Stop at 14:32; Status DC Glucagon (Glucagen) 1 mg STK-MED ONCE IV Last administered on 03/30/18at 14:35; Start 03/30/18 at 14:35; Stop 03/30/18 at 14:42; Status DC Glycopyrrolate (Robinul) 1 mg STK-MED ONCE .ROUTE ; Start 03/30/18 at 14:51; Stop 03/30/18 at 14:52; Status DC Neostigmine Methylsulfate (Neostigmine Methylsulfate) 5 mg STK-MED ONCE .ROUTE ; Start 03/30/18 at 14:51; Stop 03/30/18 at 14:52; Status DC Desflurane (Suprane) 60 ml STK-MED ONCE IH ; Start 03/30/18 at 14:58; Stop 03/30 at 14:59; Status DC Fentanyl Citrate (Fentanyl 2ml Vial) 100 mcg STK-MED ONCE .ROUTE ; Start at 15:17; Stop 03/30/18 at 15:18; Status DC Prochlorperazine Edisylate (Compazine) 10 mg STK-MED ONCE .ROUTE ; Start at 15:17; Stop 03/30/18 at 15:18; Status DC Labetalol HCl (Normodyne Iv Push) 20 mg PRN Q2HR PRN IVP HYPERTENSION, SEE COMMENTS Last administered on 03/31/18at 20:36; Start 03/30/18 at 16:30 Cefazolin Sodium/ Dextrose (Ancef 2gm Premix) 2 gm STK-MED ONCE IV ; Start 03/30 at 12:00; Stop 03/31/18 at 08:51; Status DC Acetaminophen (Tylenol) 650 mg PRN Q6HRS PRN PO FEVER; Start 03/31/18 at 14:15 Ondansetron HCl (Zofran) 4 mg PRN Q6HRS PRN IV NAUSEA/VOMITING; Start 03/31/18 at 14:15 Morphine Sulfate (Morphine Sulfate) 2 mg PRN Q2HR PRN IV MODERATE TO SEVERE PAIN; Start 03/31/18 at 14:15 Tramadol HCl (Ultram) 50 mg PRN Q6HRS PRN PO MILD TO MODERATE PAIN; Start 03/31 at 14:15 Docusate Sodium (Colace) 100 mg PRN DAILY PRN PO CONSTIPATION; Start 03/31/18 at 14:15 Midazolam HCl (Versed) 2 mg PRN 1X PRN IV PRIOR TO PROCEDURE; Start 03/31/18 at 15:00; Stop 04/01/18 at 14:59 Fentanyl Citrate (Fentanyl 2ml Vial) 25 mcg PRN Q5MIN PRN IV X 2 DOSES FOR PAIN ; Start 03/31/18 at 15:00; Stop 04/01/18 at 14:59 Fentanyl Citrate (Fentanyl 2ml Vial) 50 mcg PRN Q5MIN PRN IV X 2 DOSES FOR PAIN ; Start 03/31/18 at 15:00; Stop 04/01/18 at 14:59 Ringer's Solution 1,000 ml @ 125 mls/hr Q8H IV Last administered on 03/31/18at 15:00; Start 03/31/18 at 14:48; Stop 04/01/18 at 02:48; Status DC Lidocaine HCl (Xylocaine-Mpf 1% 2ml Vial) 2 ml 1X PRN PRN ID IV START; Start 03/31/18 at 15:00; Stop 04/01/18 at 14:59 Iohexol (Omnipaque 300 Mg/ml) 100 ml STK-MED ONCE .ROUTE ; Start 03/31/18 at 15: 07; Stop 03/31/18 at 15:08; Status DC Propofol (Diprivan) 200 mg STK-MED ONCE IV ; Start 03/31/18 at 14:00; Stop 04/01 at 08:55; Status DC Succinylcholine Chloride (Anectine) 200 mg STK-MED ONCE .ROUTE ; Start 03/31/18 at 14:00; Stop 04/01/18 at 08:55; Status DC Lisinopril (Prinivil) 30 mg DAILY PO Last administered on 04/01/18at 12:07; Start 04/01/18 at 11:00 Potassium Chloride/Dextrose/ Sod Cl 1,000 ml @ 100 mls/hr Q10H IV Last administered on 04/01/18at 12:05; Start 04/01/18 at 10:30 Throat Lozenges (Cepacol Sore Throat Lozenge) 1 karlos PRN Q2HRS PRN PO SORE THROAT; Start 04/01/18 at 12:30; Status UNV Potassium Chloride (Klor-Con) 40 meq 1X ONCE PO ; Start 04/01/18 at 12:30; Stop 04/01/18 at 12:31; Status UNV Enoxaparin Sodium (Lovenox 40mg Syringe) 40 mg Q24H SQ ; Start 04/01/18 at 12:30 ; Status UNV Active Scripts Active Reported Lisinopril 30 Mg Tablet 1 Tab PO DAILY Vitals/I & O Vital Sign - Last 24 Hours 03/31/18 03/31/18 03/31/18 03/31/18 14:49 14:52 17:33 17:43 Temp 98.6 98.6 98.6 98.6 98.6 98.6 Pulse 86 77 52 Resp 18 20 20 B/P (MAP) 163/78 205/87 Pulse Ox 92 100 100 O2 Delivery Nasal Cannula Nasal Cannula Nasal Cannula O2 Flow Rate 2.0 03/31/18 03/31/18 03/31/18 03/31/18 17:47 17:57 19:00 19:15 Temp 98.6 98.6 98.4 98.6 98.6 98.4 Pulse 89 84 87 78 Resp 20 20 18 18 B/P (MAP) 190/81 170/71 161/76 (104) 165/77 (106) Pulse Ox 100 99 96 100 O2 Delivery NonRebreather Mask Room Air Nasal Cannula Nasal Cannula O2 Flow Rate 2.0 2.0 03/31/18 03/31/18 03/31/18 03/31/18 19:30 19:45 20:00 20:15 Pulse 78 78 78 Resp 18 B/P (MAP) 168/77 (107) 168/75 (106) 165/77 (106) Pulse Ox 100 100 100 O2 Delivery Nasal Cannula Nasal Cannula Nasal Cannula Nasal Cannula O2 Flow Rate 2.0 2.0 2.0 2.0 03/31/18 03/31/18 03/31/18 03/31/18 20:36 20:45 21:45 22:45 Temp 98.9 98.9 Pulse 86 76 79 88 Resp 18 18 18 B/P (MAP) 187/88 168/75 (106) 187/88 (121) 134/52 (79) Pulse Ox 100 97 96 O2 Delivery Nasal Cannula Nasal Cannula Nasal Cannula O2 Flow Rate 2.0 2.0 04/01/18 04/01/18 04/01/18 04/01/18 03:00 07:00 11:00 12:07 Temp 98.4 98.8 98.3 98.4 98.8 98.3 Pulse 80 91 83 83 Resp 18 18 18 B/P (MAP) 138/65 (89) 138/63 (88) 126/69 (88) 126/69 Pulse Ox 95 90 93 O2 Delivery Room Air Room Air Room Air Intake and Output 03/31/18 03/31/18 04/01/18 15:00 23:00 07:00 Intake Total 0 ml Output Total 130 ml 310 ml Balance -130 ml -310 ml RU DIAZ MD Apr 01, 2018 12:31
[2018-04-01 15:00] VITALS: BP 125/64
[2018-04-01] MEDS: ENOXAPARIN 40 MG/0.4 ML SYRINGE. SQ SCH (15:42)
[2018-04-01] MEDS ORDERED: POTASSIUM CHLORIDE 20 MEQ/15 ML ORAL LIQUID. PEG ONE (15:45)
[2018-04-01] MEDS ORDERED: POTASSIUM CHLORIDE 20 MEQ/15 ML ORAL LIQUID. PO ONE (18:00)
[2018-04-01 19:00] VITALS: BP 151/71
[2018-04-01 22:32] VITALS: BP 160/78
[2018-04-02 03:00] VITALS: BP 154/79
[2018-04-02 04:43] LABS: BASO # 0.1 x10^3/uL (0.0-0.2); BASO % 1 % (0-3); EOS # 0.1 x10^3/uL (0.0-0.7); EOS % 1 % (0-3); HEMATOCRIT 41.4 % (36.0-47.0); HEMOGLOBIN 13.8 g/dL (12.0-15.5); LYMPH # 3.5 x10^3/uL (1.0-4.8); LYMPH % 29 % (24-48); MEAN CORPUSCULAR HEMOGLOBIN 29 pg (25-35); MEAN CORPUSCULAR HGB CONC 33 g/dL (31-37); MEAN CORPUSCULAR VOLUME 88 fL (79-100); MONO # 1.2 x10^3/uL (0.0-1.1); MONO % 10 % (0-9); NEUT # 7.3 x10^3uL (1.8-7.7); NEUT % 60 % (31-73); PLATELET COUNT 196 x10^3/uL (140-400); RED BLOOD COUNT 4.72 x10^6/uL (3.50-5.40); RED CELL DISTRIBUTION WIDTH 13.9 % (11.5-14.5); WHITE BLOOD COUNT 12.2 x10^3/uL (4.0-11.0)
[2018-04-02 05:04] LABS: ALBUMIN 2.8 g/dL (3.4-5.0); CALCIUM 8.8 mg/dL (8.5-10.1); CREATININE 0.7 mg/dL (0.6-1.0); DIRECT BILIRUBIN 0.3 mg/dL (0.0-0.2); GFR 83.5; POTASSIUM 3.7 mmol/L (3.5-5.1); TOTAL BILIRUBIN 0.9 mg/dL (0.2-1.0); TOTAL PROTEIN 6.5 g/dL (6.4-8.2)
[2018-04-02] MEDS: POTASSIUM CL 20MEQ D5-0.9%NACL 1,000 ML IV SCH (06:41)
[2018-04-02 07:00] VITALS: BP 177/80
[2018-04-02] MEDS: LISINOPRIL 10 MG TABLET PO SCH (07:49)
--- NOTE | 2018-04-02 09:04 | PDOC ---
JUAN DANIEL MCKAY [employer] 04/02/18 0904: SURGICAL PROGRESS NOTE Subjective tolerating diet pain with activity no emesis Vital Signs Vital Signs Date Time Temp Pulse Resp B/P (MAP) Pulse Ox O2 Delivery O2 Flow Rate FiO2 04/02/18 07:49 88 177/80 04/02/18 07:00 98.8 18 92 Room Air 98.8 04/02/18 03:00 2.0 I&O Intake and Output 04/02/18 07:00 Intake Total 580 ml Output Total 600 ml Balance -20 ml Intake Oral 580 ml Output Urine Total 500 ml Drainage Total 100 ml # Voids 1 General: Alert, Oriented X3, Cooperative, No acute distress Abdomen: Soft, Other (ND, talib serosang, NTTP) Labs Laboratory Tests Test 03/31/18 20:30 04/01/18 03:25 04/02/18 03:50 Urine Collection Type Unknown Urine Color Jessica Urine Clarity Clear Urine pH 6.0 Urine Specific [place] 1.020 Urine Protein Negative mg/dL (NEG-TRACE) Urine Glucose (UA) Negative mg/dL (NEG) Urine Ketones (Stick) Trace mg/dL (NEG) Urine Blood Negative (NEG) Urine Nitrite Negative (NEG) Urine Bilirubin Negative (NEG) Urine Urobilinogen Dipstick 1.0 mg/dL (0.2 mg/dL) Urine Leukocyte Esterase Trace (NEG) Urine RBC Occ /HPF (0-2) Urine WBC 5-10 /HPF (0-4) Urine Squamous Epithelial Cells Many /LPF Urine Bacteria Few /HPF (0-FEW) Urine Hyaline Casts Few /HPF Urine Mucus Marked /LPF White Blood Count 14.1 x10^3/uL (4.0-11.0) 12.2 x10^3/uL (4.0-11.0) Red Blood Count 4.73 x10^6/uL (3.50-5.40) 4.72 x10^6/uL (3.50-5.40) Hemoglobin 13.7 g/dL (12.0-15.5) 13.8 g/dL (12.0-15.5) Hematocrit 41.3 % (36.0-47.0) 41.4 % (36.0-47.0) Mean Corpuscular Volume 87 fL (79-100) 88 fL (79-100) Mean Corpuscular Hemoglobin 29 pg (25-35) 29 pg (25-35) Mean Corpuscular Hemoglobin Concent 33 g/dL (31-37) 33 g/dL (31-37) Red Cell Distribution Width 14.1 % (11.5-14.5) 13.9 % (11.5-14.5) Platelet Count 214 x10^3/uL (140-400) 196 x10^3/uL (140-400) Neutrophils (%) (Auto) 63 % (31-73) 60 % (31-73) Lymphocytes (%) (Auto) 29 % (24-48) 29 % (24-48) Monocytes (%) (Auto) 8 % (0-9) 10 % (0-9) Eosinophils (%) (Auto) 0 % (0-3) 1 % (0-3) Basophils (%) (Auto) 0 % (0-3) 1 % (0-3) Neutrophils # (Auto) 8.9 x10^3uL (1.8-7.7) 7.3 x10^3uL (1.8-7.7) Lymphocytes # (Auto) 4.1 x10^3/uL (1.0-4.8) 3.5 x10^3/uL (1.0-4.8) Monocytes # (Auto) 1.1 x10^3/uL (0.0-1.1) 1.2 x10^3/uL (0.0-1.1) Eosinophils # (Auto) 0.0 x10^3/uL (0.0-0.7) 0.1 x10^3/uL (0.0-0.7) Basophils # (Auto) 0.1 x10^3/uL (0.0-0.2) 0.1 x10^3/uL (0.0-0.2) Sodium Level 143 mmol/L (136-145) 139 mmol/L (136-145) Potassium Level 3.2 mmol/L (3.5-5.1) 3.7 mmol/L (3.5-5.1) Chloride Level 103 mmol/L (98-107) 103 mmol/L (98-107) Carbon Dioxide Level 32 mmol/L (21-32) 29 mmol/L (21-32) Anion Gap 8 (6-14) 7 (6-14) Blood Urea Nitrogen 13 mg/dL (7-20) 9 mg/dL (7-20) Creatinine 0.7 mg/dL (0.6-1.0) 0.7 mg/dL (0.6-1.0) Estimated GFR (Cockcroft-Gault) 83.5 83.5 BUN/Creatinine Ratio 19 (6-20) Glucose Level 134 mg/dL (70-99) 140 mg/dL (70-99) Calcium Level 8.8 mg/dL (8.5-10.1) 8.8 mg/dL (8.5-10.1) Total Bilirubin 1.1 mg/dL (0.2-1.0) 0.9 mg/dL (0.2-1.0) Direct Bilirubin 0.4 mg/dL (0.0-0.2) 0.3 mg/dL (0.0-0.2) Aspartate Amino Transf (AST/SGOT) 131 U/L (15-37) 58 U/L (15-37) Alanine Aminotransferase (ALT/SGPT) 287 U/L (14-59) 177 U/L (14-59) Alkaline Phosphatase 126 U/L (46-116) 105 U/L (46-116) Total Protein 6.7 g/dL (6.4-8.2) 6.5 g/dL (6.4-8.2) Albumin 3.0 g/dL (3.4-5.0) 2.8 g/dL (3.4-5.0) Albumin/Globulin Ratio 0.8 (1.0-1.7) Amylase Level 316 U/L (25-115) Lipase 3261 U/L (73-393) 1926 U/L (73-393) Laboratory Tests Test 04/02/18 03:50 White Blood Count 12.2 x10^3/uL (4.0-11.0) Red Blood Count 4.72 x10^6/uL (3.50-5.40) Hemoglobin 13.8 g/dL (12.0-15.5) Hematocrit 41.4 % (36.0-47.0) Mean Corpuscular Volume 88 fL (79-100) Mean Corpuscular Hemoglobin 29 pg (25-35) Mean Corpuscular Hemoglobin Concent 33 g/dL (31-37) Red Cell Distribution Width 13.9 % (11.5-14.5) Platelet Count 196 x10^3/uL (140-400) Neutrophils (%) (Auto) 60 % (31-73) Lymphocytes (%) (Auto) 29 % (24-48) Monocytes (%) (Auto) 10 % (0-9) Eosinophils (%) (Auto) 1 % (0-3) Basophils (%) (Auto) 1 % (0-3) Neutrophils # (Auto) 7.3 x10^3uL (1.8-7.7) Lymphocytes # (Auto) 3.5 x10^3/uL (1.0-4.8) Monocytes # (Auto) 1.2 x10^3/uL (0.0-1.1) Eosinophils # (Auto) 0.1 x10^3/uL (0.0-0.7) Basophils # (Auto) 0.1 x10^3/uL (0.0-0.2) Sodium Level 139 mmol/L (136-145) Potassium Level 3.7 mmol/L (3.5-5.1) Chloride Level 103 mmol/L (98-107) Carbon Dioxide Level 29 mmol/L (21-32) Anion Gap 7 (6-14) Blood Urea Nitrogen 9 mg/dL (7-20) Creatinine 0.7 mg/dL (0.6-1.0) Estimated GFR (Cockcroft-Gault) 83.5 Glucose Level 140 mg/dL (70-99) Calcium Level 8.8 mg/dL (8.5-10.1) Total Bilirubin 0.9 mg/dL (0.2-1.0) Direct Bilirubin 0.3 mg/dL (0.0-0.2) Aspartate Amino Transf (AST/SGOT) 58 U/L (15-37) Alanine Aminotransferase (ALT/SGPT) 177 U/L (14-59) Alkaline Phosphatase 105 U/L (46-116) Total Protein 6.5 g/dL (6.4-8.2) Albumin 2.8 g/dL (3.4-5.0) Lipase 1926 U/L (73-393) Problem List s/p steven ERCP pancreatitis dc when medically stable remove drain prior to discharge RU DIAZ MD 04/02/18 1246: SURGICAL PROGRESS NOTE Assessment/Plan Agree with above JUAN DANIEL MCKAY INDUSTRIAL TRACTOR DRIVER Apr 02, 2018 09:04 RU DIAZ MD Apr 02, 2018 12:46
--- NOTE | 2018-04-02 09:08 | PATHOLOGY ---
[facility] Accession Number: [id number] . 01 Material submitted: . GALLBLADDER . 01 Clinical history: . Cholecystitis . 02 Diagnosis: Gallbladder, laparoscopic cholecystectomy: - Cholelithiasis. - Chronic cholecystitis. - Adenomyosis of gallbladder wall, focal. . 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 02 Comment: There is no evidence of malignancy. . ([facility]:destination sign repairer; 04/01/2018) . 02 Electronically signed: . Berto Kern MD, Pathologist NPI- [id number] . 01 Gross description: . The specimen is received in formalin, labeled "White, Sherin, gallbladder" and consists of an intact, echeverria-crawley, and ragged gallbladder measuring 7.8 cm in length and up to 2.6 cm in diameter. Opening reveals a lumen packed with tenacious green bile and multiple black multifaceted calculi that measure 4.5 x 3.8 x 0.6 cm in aggregate. The mucosa is brown and trabeculated with multiple areas of marked wall thinning. The wall ranges from 0.1-0.3 cm. No masses are identified. Lavatory Attendant sections are submitted in A1. (SDY; 03/31/2018) SYU/SYU . 02 Pathologist provided ICD-10: K80.10 . 02 CPT . 599440 Specimen Comment: A courtesy copy of this report has been sent to Specimen Comment: [phone], , , . Specimen Comment: Report sent to ,DR BREWSTER,DR MARTIN / DR LENNON Specimen Comment: A duplicate report has been generated due to demographic updates. Performed at: 01 [facility] [address] [facility] [address], [place] [id number] MD Ronal West MD Phone: [phone] Performed at: 02 [facility] [address] [place], [place] [id number] MD Berto Kern MD Phone: [phone]
--- NOTE | 2018-04-02 10:59 | PDOC ---
Subjective: Subjective: Tolerating full liquids. Has abd pain only w/ movement. Passing gas, no stool. Feels well enough to go home. Objective: Objective: Reviewed w/ RN - doesn't ask for pain meds, want stop IVF. Vital Signs: Vital Signs Date Time Temp Pulse Resp B/P (MAP) Pulse Ox O2 Delivery O2 Flow Rate FiO2 04/02/18 07:49 88 177/80 04/02/18 07:45 Room Air 04/02/18 07:00 98.8 18 92 98.8 04/02/18 03:00 2.0 Labs: Laboratory Tests Test 04/02/18 03:50 White Blood Count 12.2 x10^3/uL Red Blood Count 4.72 x10^6/uL Hemoglobin 13.8 g/dL Hematocrit 41.4 % Mean Corpuscular Volume 88 fL Mean Corpuscular Hemoglobin 29 pg Mean Corpuscular Hemoglobin Concent 33 g/dL Red Cell Distribution Width 13.9 % Platelet Count 196 x10^3/uL Neutrophils (%) (Auto) 60 % Lymphocytes (%) (Auto) 29 % Monocytes (%) (Auto) 10 % Eosinophils (%) (Auto) 1 % Basophils (%) (Auto) 1 % Neutrophils # (Auto) 7.3 x10^3uL Lymphocytes # (Auto) 3.5 x10^3/uL Monocytes # (Auto) 1.2 x10^3/uL Eosinophils # (Auto) 0.1 x10^3/uL Basophils # (Auto) 0.1 x10^3/uL Sodium Level 139 mmol/L Potassium Level 3.7 mmol/L Chloride Level 103 mmol/L Carbon Dioxide Level 29 mmol/L Anion Gap 7 Blood Urea Nitrogen 9 mg/dL Creatinine 0.7 mg/dL Estimated GFR (Cockcroft-Gault) 83.5 Glucose Level 140 mg/dL Calcium Level 8.8 mg/dL Total Bilirubin 0.9 mg/dL Direct Bilirubin 0.3 mg/dL Aspartate Amino Transf (AST/SGOT) 58 U/L Alanine Aminotransferase (ALT/SGPT) 177 U/L Alkaline Phosphatase 105 U/L Total Protein 6.5 g/dL Albumin 2.8 g/dL Lipase 1926 U/L PE: GEN: NAD, up to chair LUNGS: CTAB HEART: RRR ABD: NABS, S/ND/NT NEURO/PSYCH: A & O 3 A/P: S/p cholecystectomy and ERCP -- Lipase improved, tolerating PO w/o post-prandial pain. Reviewed w/ Dr. Usman mix w/ GI to DC. Follow-up for outpt screening colonoscopy - was supposed to be done at today. GIA GANN Apr 02, 2018 10:59 RU MADISON MD Apr 02, 2018 11:39
[2018-04-02 11:00] VITALS: BP 172/85
[2018-04-02] MEDS ORDERED: BISACODYL 5 MG TABLET.DR. PO PRN (11:00)
[2018-04-02] MEDS ORDERED: POLYETHYLENE GLYCOL 3350 17 GM PACKET. PO PRN (11:00)
[2018-04-02] MEDS ORDERED: TRAM50TA PO (11:29)
[2018-04-02] MEDS ORDERED: LISI-130 PO (11:29)
[2018-04-02] MEDS: ENOXAPARIN 40 MG/0.4 ML SYRINGE. SQ SCH (13:20)
--- NOTE | 2018-04-02 14:42 | PDOC3 ---
Discharge Summary [facility] Date of Admission: Mar 30, 2018 Discharge Date: Apr 02, 2018 Admitting Diagnosis abd pain with acute calculus cholecystitis s/p lap cholecystectomy 03/30, ERCP 03/31 sphincterotomy and retained sludge removal elevated LFT with CBD obstruction HTN post ERCP pancreatitis hypokalemia CONSULTS sx gi Brief Hospital Course Patient is a 67 year old female who presents with epigastric pain and nausea since last night. pt said she started to have abd pain since last night, epigastric pain, dull, severe, 8/10, with non bloody non bibilous vomiting 6 times. no fever, chills, chest pain, sob. CT showed cholelithiasis with possible cholecystitis. Her past surgical history is only positive for 2 pt underwent lap cholecystectomy , LFT still high, and cholangiogram showed possible CBC obstruction. so pt got ERCP on day, did sphinctectomy, an retained sludge removal. LFT better later, but got post ERCP pancreatitis. today labs better, lipase still high tho. advance diet, has flatus, no BM post op ok to dc if eats ok as per gi. asked her to fu with PCP on Friday to repeat labs. fu with sx in 2 weeks. dc time 35min. increase lisinopril to 40mg daily given htn. General: Alert, Oriented X3, Cooperative, No acute distress Heart: Regular rate, Normal S1, Normal S2, No murmurs Lungs: Clear Abdomen: Soft, Other (ND, ALEENA serosang, lap dressings dry. mild BS.) Extremities: No clubbing, No cyanosis Skin: No rashes, No breakdown Disposition home CONDITION AT DISCHARGE: Improved Scheduled Lisinopril (Lisinopril), 40 MG PO DAILY Scheduled PRN Tramadol Hcl (Tramadol Hcl), 50 MG PO PRN Q6HRS PRN for MILD TO MODERATE PAIN Discontinued Medications Lisinopril (Lisinopril), 1 TAB PO DAILY, (Reported) Simvastatin (Simvastatin), 1 TAB PO QHS, (Reported) MINDI BREWSTER MD Apr 02, 2018 14:42
[2018-04-03] MEDS ORDERED: LISINOPRIL 20 MG TABLET PO SCH (09:00)
== END 2018-04-02 15:00 | disposition home or self-care (01) | DRG 853 ==
LOC: ER 06:58 → 4 NORTH 08:50
PROVIDERS: ADMIT Internal Medicine; ATTEND Internal Medicine
PROC: BF141ZZ Fluoroscopy of Gallbladder, Bile Ducts and Pancreatic Ducts using Low Osmolar Contrast (ICD-10-PCS; 2018-03-30)
PROC: 0F7C8ZZ Dilation of Ampulla of Vater, Via Natural or Artificial Opening Endoscopic (ICD-10-PCS; 2018-03-30)
PROC: 0F788ZZ Dilation of Cystic Duct, Via Natural or Artificial Opening Endoscopic (ICD-10-PCS; 2018-03-30)
PROC: 0F798ZZ Dilation of Common Bile Duct, Via Natural or Artificial Opening Endoscopic (ICD-10-PCS; 2018-03-30)
PROC: BF111ZZ Fluoroscopy of Biliary and Pancreatic Ducts using Low Osmolar Contrast (ICD-10-PCS; 2018-03-30)
PROC: 0FT44ZZ Resection of Gallbladder, Percutaneous Endoscopic Approach (ICD-10-PCS; principal; 2018-03-30 12:30)
DX: A41.9 Sepsis, unspecified organism (principal); K85.90 Acute pancreatitis without necrosis or infection, unspecified; K80.63 Calculus of gallbladder and bile duct with acute cholecystitis with obstruction; E87.6 Hypokalemia; Z79.899 Other long term (current) drug therapy; I10 Essential (primary) hypertension; E78.5 Hyperlipidemia, unspecified; K76.0 Fatty (change of) liver, not elsewhere classified; Y84.8 Other medical procedures as the cause of abnormal reaction of the patient, or of later complication, without mention of misadventure at the time of the procedure
CPT/HCPCS: 36415; 43261; 74300; 74328; 76705; 80048; 80053; 80076; 81001; 82150; 82248; 82962; 83690; 84484; 85007; 85025; 85610; 87086; 88304; 93005; 96361; 96374; 96375; A7015; C1726; C1757; J0330; J0690; J0780; J1100; J1610; J1650; J2001; J2250; J2270; J2405; J2704; J2710; J3010; J3490; J7030; J7120; Q9967; 99285-25